=== PATIENT | female | born 1985 | race Caucasian/White ===

== ENCOUNTER 2018-03-15 14:09 | Emergency (ER) | payer BC, OTHER ==
[~2018-03-15] VITALS: Ht 162.6 cm; Wt 88.5 kg
[2018-03-15] MEDS ORDERED: LISI1TAB8 PO (14:42)
[2018-03-15] MEDS ORDERED: PROCHLORPER (14:42)
[2018-03-15] MEDS ORDERED: CITA10TA7 PO (14:42)
[2018-03-15] MEDS ORDERED: ONDANSETRON 4 MG/2 ML (SDV) Z0FRAN IVP ONE (14:45)
[2018-03-15] MEDS ORDERED: NS IV 1000 ML 1,000 ML IV SCH ×2 (14:45→15:45)
[2018-03-15 14:57] LABS: BASOPHILS % (AUTO) 0 % (0-10); EOSINOPHILS % (AUTO) 0 % (0-10); HEMATOCRIT 38 % (35-52); HEMOGLOBIN 13.9 G/DL (11.5-16.0); LYMPHOCYTES # (AUTO) 1.2 X 10^3 (1.0-4.0); LYMPHOCYTES % (AUTO) 9 % (12-44); MEAN CORPUSCULAR HEMOGLOBIN 30 PG (25-34); MEAN CORPUSCULAR HGB CONC 36 G/DL (32-36); MEAN CORPUSCULAR VOLUME 82 FL (80-99); MEAN PLATELET VOLUME 8.9 FL (7.4-10.4); MONOCYTES # (AUTO) 0.9 X 10^3 (0.0-1.0); MONOCYTES % (AUTO) 6 % (0-12); NEUTROPHILS # (AUTO) 11.9 X 10^3 (1.8-7.8); NEUTROPHILS % (AUTO) 85 % (42-75); PLATELET COUNT 535 10^3/uL (130-400); RED BLOOD COUNT 4.66 10^6/uL (4.35-5.85); RED CELL DISTRIBUTION WIDTH 13.1 % (10.0-14.5); WHITE BLOOD COUNT 13.9 10^3/uL (4.3-11.0)
[2018-03-15 15:17] LABS: ALANINE AMINOTRANSFERASE 19 U/L (0-55); ALBUMIN 4.8 GM/DL (3.2-4.5); ALKALINE PHOSPHATASE 50 U/L (40-136); BUN/CREATININE RATIO 14; CALCIUM 10.7 MG/DL (8.5-10.1); CARBON DIOXIDE 24 MMOL/L (21-32); CHLORIDE 97 MMOL/L (98-107); GFR ESTIMATED > 60; GLUCOSE 147 MG/DL (70-105); POTASSIUM 3.4 MMOL/L (3.6-5.0); SODIUM 134 MMOL/L (135-145); TOTAL PROTEIN 8.5 GM/DL (6.4-8.2)
[2018-03-15] MEDS ORDERED: PROMETHAZINE INJ 25 MG/ML (PHENERGAN) AMP IVP ONE (15:45)
[2018-03-15] MEDS ORDERED: NS 250 ML (IVPB) BAG IV ONE (15:45)
[2018-03-15] MEDS ORDERED: IOHEXOL 350 MG/ML 100 ML (OMNIPAQUE 350) VIAL IV ONE (15:45)
--- NOTE | 2018-03-15 15:46 | ED Abdominal Pain ---
General Chief Complaint: Abdominal/GI Problems Stated Complaint: VOMITING/DEHYDRATED Nursing Triage Note: PT STATES NVD FOR ABOUT 24 HRS, HAD A SINUS INFECTION ON TUESDAY AND WAS GIVEN A Z PACK. Sepsis Screen: No Definite Risk Source of Information: Patient Exam Limitations: No Limitations History of Present Illness Date Seen by Provider: Mar 15, 2018 Time Seen by Provider: 15:44 Initial Comments To ER with nausea vomiting and diarrhea for about 24 hours. On Tuesday of this weekend (today is Tuesday) she was put on a Z-Berto for sinus infection. That night after starting the Z-Berto she developed diarrhea. Starting last night she developed nausea and vomiting as well as some right lower and epigastric abdominal pain. She did finish the Z-Berto. Timing/Duration: 2-3 Days Severity/Quality: Cramping Location: Generalized Abdomen Radiation: No Radiation Activities at Onset: None Allergies and Home Medications Allergies Coded Allergies: clindamycin (Verified Allergy, Intermediate, 03/15/18) Home Medications Lisinopril/Hydrochlorothiazide 1 Each Tablet, 1 EACH PO DAILY, (Reported) Patient Home Medication List Home Medication List Reviewed: Yes Review of Systems Constitutional: see HPI, chills; No fever EENTM: No Symptoms Reported Respiratory: No Symptoms Reported Cardiovascular: No Symptoms Reported Gastrointestinal: See HPI, Abdominal Pain Genitourinary: No Symptoms Reported Musculoskeletal: no symptoms reported Skin: no symptoms reported Psychiatric/Neurological: No Symptoms Reported Endocrine: No Symptoms Reported Past Nekpivf-Cgqwtu-Tunqio Hx Patient Social History Alcohol Use: Denies Use Recreational Drug Use: No Smoking Status: Never a Smoker Recent Foreign Travel: No Contact w/Someone Who Travel: No Recent Infectious Disease Expo: No Recent Hopitalizations: No Seasonal Allergies Seasonal Allergies: Yes Past Medical History Surgeries: Yes Tubal Ligation Respiratory: No Cardiac: Yes Hypertension Neurological: Yes Headaches /Migraines : 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 oz. 88.305228dn; BMI Method:Stated General Appearance: WD/WN, no apparent distress HEENT: PERRL/EOMI, normal ENT inspection Neck: non-tender, full range of motion Respiratory: no respiratory distress, no accessory muscle use Gastrointestinal: normal bowel sounds, non tender, soft; No tenderness Extremities: normal range of motion, non-tender Neurologic/Psychiatric: alert, normal mood/affect, oriented x 3 Skin: normal color, warm/dry Progress/Results/Core Measures Results/Orders Lab Results Laboratory Tests Test 03/15/18 14:50 Range/Units White Blood Count 13.9 H 4.3-11.0 10^3/uL Red Blood Count 4.66 4.35-5.85 10^6/uL Hemoglobin 13.9 11.5-16.0 G/DL Hematocrit 38 35-52 % Mean Corpuscular Volume 82 80-99 FL Mean Corpuscular Hemoglobin 30 25-34 PG Mean Corpuscular Hemoglobin Concent 36 32-36 G/DL Red Cell Distribution Width 13.1 10.0-14.5 % Platelet Count 535 H 130-400 10^3/uL Mean Platelet Volume 8.9 7.4-10.4 FL Neutrophils (%) (Auto) 85 H 42-75 % Lymphocytes (%) (Auto) 9 L 12-44 % Monocytes (%) (Auto) 6 0-12 % Eosinophils (%) (Auto) 0 0-10 % Basophils (%) (Auto) 0 0-10 % Neutrophils # (Auto) 11.9 H 1.8-7.8 X 10^3 Lymphocytes # (Auto) 1.2 1.0-4.0 X 10^3 Monocytes # (Auto) 0.9 0.0-1.0 X 10^3 Eosinophils # (Auto) 0.0 0.0-0.3 10^3/uL Basophils # (Auto) 0.0 0.0-0.1 10^3/uL Sodium Level 134 L 135-145 MMOL/L Potassium Level 3.4 L 3.6-5.0 MMOL/L Chloride Level 97 L 98-107 MMOL/L Carbon Dioxide Level 24 21-32 MMOL/L Anion Gap 13 5-14 MMOL/L Blood Urea Nitrogen 13 7-18 MG/DL Creatinine 0.90 0.60-1.30 MG/DL Estimat Glomerular Filtration Rate > 60 BUN/Creatinine Ratio 14 Glucose Level 147 H 70-105 MG/DL Calcium Level 10.7 H 8.5-10.1 MG/DL Corrected Calcium 8.5-10.1 MG/DL Total Bilirubin 1.0 0.1-1.0 MG/DL Aspartate Amino Transf (AST/SGOT) 17 5-34 U/L Alanine Aminotransferase (ALT/SGPT) 19 0-55 U/L Alkaline Phosphatase 50 40-136 U/L Total Protein 8.5 H 6.4-8.2 GM/DL Albumin 4.8 H 3.2-4.5 GM/DL Serum Test, Qualitative NEGATIVE NEGATIVE My Orders Orders - JEFF JACQUES APRN Cbc With Automated Diff (03/15/18 14:44) Comprehensive Metabolic Panel (03/15/18 14:44) Ua Culture If Indicated (03/15/18 14:44) Iv Heplock-Insert (Order) (03/15/18 14:44) Ns Iv 1000 Ml (Sodium Chloride 0.9%) (03/15/18 14:45) Ondansetron Injection (Zofran Injectio (03/15/18 14:45) Ns Iv 1000 Ml (Sodium Chloride 0.9%) (03/15/18 15:45) Promethazine Injection (Phenergan Injec (03/15/18 15:45) Hcg,Qualitative Serum (03/15/18 15:38) Ct Abdomen/Pelvis W (03/15/18 15:38) Iohexol Injection (Omnipaque 350 Mg/Ml 1 (03/15/18 15:45) Ns (Ivpb) (Sodium Chloride 0.9%) (03/15/18 15:45) Medications Given in ED Current Medications Medications Dose Ordered Sig/Amilcar Route Start Time Stop Time Status Last Admin Dose Admin Iohexol 100 ml ONCE ONCE IV 03/15/18 15:45 03/15/18 15:46 DC 03/15/18 16:08 100 ML Ondansetron HCl 8 mg ONCE ONCE IVP 03/15/18 14:45 03/15/18 14:46 DC 03/15/18 14:55 8 MG Promethazine HCl 12.5 mg ONCE ONCE IVP 03/15/18 15:45 03/15/18 15:46 DC 03/15/18 15:51 12.5 MG Sodium Chloride 250 ml ONCE ONCE IV 03/15/18 15:45 03/15/18 15:46 DC 03/15/18 16:08 80 ML Vital Signs/I&O 03/15/18 14:33 Temp 98.4 Pulse 69 Resp 20 B/P (MAP) 132/88 (103) Pulse Ox 97 O2 Delivery Room Air Blood Pressure Mean: 103 Diagnostic Imaging Diagonstic Imaging: Xray Comments NAME: LEONA RIOS [facility] REC#: [id number] PT STATUS: REG ER : 1985 PHYSICIAN: JEFF JACQUES APRN ADMIT DATE: 03/15/18/ER Draft Date of Exam:03/15/18 CT ABDOMEN/PELVIS W PROCEDURE: CT abdomen and pelvis with contrast. TECHNIQUE: Multiple contiguous axial images were obtained through the abdomen and pelvis after administration of intravenous contrast. INDICATION: Nausea, vomiting, diarrhea of 24-hour duration. COMPARISON: No priors. FINDINGS: The air-containing appendix is visualized and normal. There is no small or large bowel obstruction. There is no free air or pneumatosis. The liver, gallbladder, bile ducts, spleen, adrenals, and pancreas are unremarkable. The unobstructed kidneys appeared normal. There is a small fatty umbilical hernia, noninflamed. There is a right ovarian cyst, probably dominant follicle, measuring 2 cm without appreciable complexity. The uterus, left adnexa, and urinary bladder appeared normal. There is no diverticulitis. No focal inflammatory change is identified. IMPRESSION: Unobstructed urinary tracts. Negative appendix. Likely physiologic simple right ovarian cyst. Incidental fatty umbilical hernia. No obstructive features, inflammatory process, or acute abnormalities are identified. Dictated on workstation # [id number] Dict: 03/15/18 1629 Trans: 03/15/18 1641 [id number] Interpreted by: AMELIA ARZATE Electronically signed by: Departure Impression Primary Impression: Nausea vomiting and diarrhea Disposition: 01 HOME, SELF-CARE Condition: Stable Departure-Patient Inst. Decision time for Depature: 16:45 Referrals: RAMÓN MUNROE MD (PCP/Family) Primary Care Physician Patient Instructions: Nausea and Vomiting, Adult Add. Discharge Instructions: 1. Medication as directed. Return to ER for any concerns and follow up with your doctor later this week or next week for recheck. All discharge instructions reviewed with patient and/or family. Voiced understanding. Scripts Promethazine HCl (Promethazine Tablet) 25 Mg Tablet 25 MG PO Q6H PRN for NAUSEA/VOMITING, #20 TAB Prov: JEFF JACQUES APRN 03/15/18 JEFF JACQUES APRN Mar 15, 2018 15:46
--- NOTE | 2018-03-15 16:41 | Diagnostic Imaging Report ---
PROCEDURE: CT abdomen and pelvis with contrast. TECHNIQUE: Multiple contiguous axial images were obtained through the abdomen and pelvis after administration of intravenous contrast. INDICATION: Nausea, vomiting, diarrhea of 24-hour duration. COMPARISON: No priors. FINDINGS: The air-containing appendix is visualized and normal. There is no small or large bowel obstruction. There is no free air or pneumatosis. The liver, gallbladder, bile ducts, spleen, adrenals, and pancreas are unremarkable. The unobstructed kidneys appeared normal. There is a small fatty umbilical hernia, noninflamed. There is a right ovarian cyst, probably dominant follicle, measuring 2 cm without appreciable complexity. The uterus, left adnexa, and urinary bladder appeared normal. There is no diverticulitis. No focal inflammatory change is identified. IMPRESSION: Unobstructed urinary tracts. Negative appendix. Likely physiologic simple right ovarian cyst. Incidental fatty umbilical hernia. No obstructive features, inflammatory process, or acute abnormalities are identified. Dictated by: Dictated on workstation # [id number]
[2018-03-15] MEDS ORDERED: PROM25TA14 PO (16:57)
[2018-03-15 17:04] LABS: BILIRUBIN,URINE NEGATIVE (NEGATIVE); CLARITY,URINE CLEAR; COLOR,URINE YELLOW; GLUCOSE, URINE (UA) NEGATIVE (NEGATIVE); KETONES,URINE 4+ (NEGATIVE); LEUKOCYTE ESTERASE ,URINE NEGATIVE (NEGATIVE); NITRITE,URINE NEGATIVE (NEGATIVE); PH,URINE 7 (5-9); PROTEIN,URINE 2+ (NEGATIVE); UROBILINOGEN,URINE NORMAL (NORMAL)
[2018-03-15 17:17] LABS: BACTERIA,URINE TRACE /HPF
[2018-03-15 17:25] VITALS: BP 129/80
== END 2018-03-15 17:25 | disposition home or self-care (01) ==
LOC: EDUNIT# 14:09 → ER 14:12
DX: R11.2 Nausea with vomiting, unspecified (principal); R19.7 Diarrhea, unspecified; I10 Essential (primary) hypertension; G43.909 Migraine, unspecified, not intractable, without status migrainosus; Z88.0 Allergy status to penicillin; Z98.51 Tubal ligation status
CPT/HCPCS: 36415; 74177; 80053; 81000; 84703; 85025; 96361; 96374; 96375

== ENCOUNTER 2018-07-23 17:09 | Emergency (ER) | payer BC ==
[~2018-07-23] VITALS: Ht 162.6 cm; Wt 88.5 kg
[~2018-07-23 17:09] MED LIST: CITA10TA7 PO; LISI1TAB8 PO; PROCHLORPER; PROM25TA14 PO
--- OUTSIDE RECORDS SUMMARY | 2018-07-23 17:15 | XMS REPORT | Continuity of Care Document ---
Author Author [facility] Organization [facility] Address Unknown Phone Unavailable Allergies There is no data. Medications There is no data. Problems Date Dx Coded Attending Type Code Diagnosis Diagnosed By 08/25/2015 Ot 789.03 08/25/2015 Ot 787.02 08/25/2015 Ot 789.00 04/05/2017 NIRMALA BARNES Ot M25.571 PAIN IN RIGHT ANKLE AND JOINTS OF RIGHT Procedures There is no data. Results Test Result Range Complete blood count (CBC) with automated white blood cell (WBC) differential - 03/15/18 14:50 Blood leukocytes automated count (number/volume) 13.9 10*3/uL 4.3-11.0 Blood erythrocytes automated count (number/volume) 4.66 10*6/uL 4.35-5.85 Venous blood hemoglobin measurement (mass/volume) 13.9 g/dL 11.5-16.0 Blood hematocrit (volume fraction) 38 % 35-52 Automated erythrocyte mean corpuscular volume 82 [foz_us] 80-99 Automated erythrocyte mean corpuscular hemoglobin (mass per erythrocyte) 30 pg 25-34 Automated erythrocyte mean corpuscular hemoglobin concentration measurement ( mass/volume) 36 g/dL 32-36 Automated erythrocyte distribution width ratio 13.1 % 10.0-14.5 Automated blood platelet count (count/volume) 535 10*3/uL 130-400 Automated blood platelet mean volume measurement 8.9 [foz_us] 7.4-10.4 Automated blood neutrophils/100 leukocytes 85 % 42-75 Automated blood lymphocytes/100 leukocytes 9 % 12-44 Blood monocytes/100 leukocytes 6 % 0-12 Automated blood eosinophils/100 leukocytes 0 % 0-10 Automated blood basophils/100 leukocytes 0 % 0-10 Blood neutrophils automated count (number/volume) 11.9 10*3 1.8-7.8 Blood lymphocytes automated count (number/volume) 1.2 10*3 1.0-4.0 Blood monocytes automated count (number/volume) 0.9 10*3 0.0-1.0 Automated eosinophil count 0.0 10*3/uL 0.0-0.3 Automated blood basophil count (count/volume) 0.0 10*3/uL 0.0-0.1 Comprehensive metabolic panel - 03/15/18 14:50 Serum or plasma sodium measurement (moles/volume) 134 mmol/L 135-145 Serum or plasma potassium measurement (moles/volume) 3.4 mmol/L 3.6-5.0 Serum or plasma chloride measurement (moles/volume) 97 mmol/L 98-107 Carbon dioxide 24 mmol/L 21-32 Serum or plasma anion gap determination (moles/volume) 13 mmol/L 5-14 Serum or plasma urea nitrogen measurement (mass/volume) 13 mg/dL 7-18 Serum or plasma creatinine measurement (mass/volume) 0.90 mg/dL 0.60-1.30 Serum or plasma urea nitrogen/creatinine mass ratio 14 NRG Serum or plasma creatinine measurement with calculation of estimated glomerular filtration rate > NRG Serum or plasma glucose measurement (mass/volume) 147 mg/dL 70-105 Serum or plasma calcium measurement (mass/volume) 10.7 mg/dL 8.5-10.1 Serum or plasma total bilirubin measurement (mass/volume) 1.0 mg/dL 0.1-1.0 Serum or plasma alkaline phosphatase measurement (enzymatic activity/volume) 50 U/L 40-136 Serum or plasma aspartate aminotransferase measurement (enzymatic activity/ volume) 17 U/L 5-34 Serum or plasma alanine aminotransferase measurement (enzymatic activity/volume ) 19 U/L 0-55 Serum or plasma protein measurement (mass/volume) 8.5 g/dL 6.4-8.2 Serum or plasma albumin measurement (mass/volume) 4.8 g/dL 3.2-4.5 Serum or plasma choriogonadotropin ( test) detection - 03/15/18 14:50 Serum or plasma choriogonadotropin ( test) detection NEGATIVE NEGATIVE Complete urinalysis with reflex to culture - 03/15/18 16:55 Urine color determination YELLOW NRG Urine clarity determination CLEAR NRG Urine pH measurement by test strip 7 5-9 Specific gravity of urine by test strip 1.005 1.016- 1.022 Urine protein assay by test strip, semi-quantitative 2+ NEGATIVE Urine glucose detection by automated test strip NEGATIVE NEGATIVE Erythrocytes detection in urine sediment by light microscopy NEGATIVE NEGATIVE Urine ketones detection by automated test strip 4+ NEGATIVE Urine nitrite detection by test strip NEGATIVE NEGATIVE Urine total bilirubin detection by test strip NEGATIVE NEGATIVE Urine urobilinogen measurement by automated test strip (mass/volume) NORMAL NORMAL Urine leukocyte esterase detection by dipstick NEGATIVE NEGATIVE Automated urine sediment erythrocyte count by microscopy (number/high power field) NONE NRG Automated urine sediment leukocyte count by microscopy (number/high power field ) NONE NRG Bacteria detection in urine sediment by light microscopy TRACE NRG Squamous epithelial cells detection in urine sediment by light microscopy 5-10 NRG Crystals detection in urine sediment by light microscopy NONE NRG Casts detection in urine sediment by light microscopy NONE NRG Mucus detection in urine sediment by light microscopy NEGATIVE NRG Complete urinalysis with reflex to culture NO NRG Encounters ACCT No. Visit Date/Time Discharge Status Pt. Type Provider Facility Loc./Unit Complaint [id number] 08/25/2015 10:59:00 08/25/2015 23:59:59 CLS Outpatient NIRMALA BARNES [facility] RAD FALL WITH PAIN [id number] 03/15/2018 14:58:00 Document Registration [id number] 11/24/2012 08:28:00 Document Registration [id number] 01/24/2012 10:53:00 Document Registration
--- OUTSIDE RECORDS SUMMARY | 2018-07-23 17:15 | XMS REPORT | CCD ---
Author Author [facility] Address [address] [place] [address] Phone Care Team Providers Care Associate [employer] Name Role Phone PP Unavailable CCM Unavailable Summary Purpose Interface Exchange Insurance Providers Payer name Policy type / Coverage type Covered libertarian ID Effective Begin Date Effective End Date [employer] [facility] [employer] [facility] [id number] Unknown Family history Father Diagnosis Age At Onset No Family Disease Entered N/A Mother Diagnosis Age At Onset No Family Disease Entered N/A Social History Social History Element Codes Description Effective Dates Marital status Unknown Suresh 08/22/2014 Number of children Unknown 1 08/22/2014 Employment Unknown Currently employed [employer] 08/22/2014 Employment Unknown Currently employed [employer] 08/22/[address]: 534311939 Never smoker 08/22/[address]: 058651222 Never smoker 08/22/2014 Alcohol history Unknown occasionally drinks alcohol 08/22/2014 Alcohol history Unknown occasionally drinks alcohol 0-1 drinks per week 08/22/2014 Has the patient ever used illegal drugs? Unknown Has never used illegal drugs 08/22/2014 Allergies, Adverse Reactions, Alerts Allergies, Adverse Reactions, Alerts data not found Past Medical History Illness Codes Condition Status Onset Date Resolved Date Cough ICD-9: 786.2 ICD-10: R05 Active 12/29/2016 Unknown Other allergic rhinitis ICD-9: 477.8 ICD-10: J30.89 Active 12/29/2016 Unknown Acute maxillary sinusitis, unspecified ICD-9: 461.0 ICD-10: J01.00 Active 05/26/2015 Unknown Acute laryngopharyngitis ICD-9: 465.0 ICD-10: J06.0 Active 02/26/2016 Unknown Other acute sinusitis ICD-9: 461.8 ICD-10: J01.80 Active 02/26/2016 Unknown Acute nasopharyngitis [common cold] ICD-9: 460 ICD-10: J00 Active 03/07/2016 Unknown Acute cystitis without hematuria ICD-9: 595.0 ICD-10: N30.00 Active 09/30/2015 Unknown Acute recurrent maxillary sinusitis ICD-9: 461.0 ICD-10: J01.01 Active 07/20/2015 Unknown Essential (primary) hypertension ICD-9: 401.9 ICD-10: I10 Active 05/26/2015 Unknown Hypertension Unknown Active 08/22/2014 Unknown Acute maxillary sinusitis ICD-9: 461.0 Active 08/22/2014 Unknown COUGH ICD-9: 786.2 Active 08/22/2014 Unknown ESSENTIAL HYPERTENSION ICD-9: 401.9 Active 08/22/2014 Unknown Problems Condition Codes Effective Dates Condition Status Cough ICD-9: 786.2 ICD-10: R05 12/29/2016 Active Other allergic rhinitis ICD-9: 477.8 ICD-10: J30.89 12/29/2016 Active Acute maxillary sinusitis, unspecified ICD-9: 461.0 ICD-10: J01.00 05/26/2015 Active Acute laryngopharyngitis ICD-9: 465.0 ICD-10: J06.0 02/26/2016 Active Other acute sinusitis ICD-9: 461.8 ICD-10: J01.80 02/26/2016 Active Acute nasopharyngitis [common cold] ICD-9: 460 ICD-10: J00 03/07/2016 Active Acute cystitis without hematuria ICD-9: 595.0 ICD-10: N30.00 09/30/2015 Active Acute recurrent maxillary sinusitis ICD-9: 461.0 ICD-10: J01.01 07/20/2015 Active Essential (primary) hypertension ICD-9: 401.9 ICD-10: I10 05/26/2015 Active Hypertension Unknown 08/22/2014 Active Acute maxillary sinusitis ICD-9: 461.0 08/22/2014 Active COUGH ICD-9: 786.2 08/22/2014 Active ESSENTIAL HYPERTENSION ICD-9: 401.9 08/22/2014 Active Medications Medication Codes Instructions Start Date Stop Date Status Fill Instructions Tessalon Perles 100 mg capsule RxNorm: 955997 1-2 Capsule(s) PO TID as needed 09/12/2017 09/16/2017 Active Zofran 4 mg tablet RxNorm: 314487 1 Tablet(s) PO TID as needed nausea and vomitting 08/17/2017 No Stop Date Active Zofran 4 mg tablet RxNorm: 335456 1 Tablet(s) PO TID as needed nausea and vomitting 08/17/2017 08/16/2017 Inactive Zithromax 250 mg tablet RxNorm: 145349 Tablet(s) PO UD 2 tabs day one 1 tab day 2- 5 - start if symptoms are not improving 12/29/2016 No Stop Date Active Sarah Allergy 180 mg tablet RxNorm: 058027 1 Tablet(s) PO daily 12/29/2016 03/28/2017 Inactive Singulair 10 mg tablet RxNorm: 365235 1 Tablet(s) PO daily 03/28/2017 Inactive Tessalon Perles 100 mg capsule RxNorm: 943790 1-2 Capsule(s) PO TID as needed 12/29/2016 01/02/2017 Inactive Kenalog 40 mg/mL suspension for injection RxNorm: 4765833 Milliliter(s) Inj 12/21/2016 12/21/2016 Inactive Diflucan 150 mg tablet RxNorm: 893145 1 Tablet(s) PO daily 07/201712/21/2016 Inactive Diflucan 150 mg tablet RxNorm: 750334 1 Tablet(s) PO daily 07/201712/16/2016 Inactive prednisone 20 mg tablet RxNorm: 119035 2 Tablet(s) PO daily 03/201712/17/2016 Inactive Augmentin 875 mg-125 mg tablet RxNorm: 775718 1 Tablet(s) PO BID 12/09/2016 12/15/2016 Inactive Augmentin 875 mg-125 mg tablet RxNorm: 561025 1 Tablet(s) PO BID 10/22/2016 10/28/2016 Inactive Augmentin 875 mg-125 mg tablet RxNorm: 019206 1 Tablet(s) PO BID 10/22/2016 10/21/2016 Inactive amoxicillin 500 mg capsule RxNorm: 658351 1 Capsule(s) PO TID 02/27/2016 03/04/2016 Inactive Celexa 10 mg tablet RxNorm: 654510 1 Tablet(s) PO daily 201510/21/2016 Inactive metoprolol tartrate 50 mg tablet RxNorm: 862023 1 Tablet(s) PO BID 10/28/2015 10/21/2016 Inactive Celexa 10 mg tablet RxNorm: 843751 1 Tablet(s) PO daily 201510/27/2015 Inactive metoprolol tartrate 50 mg tablet RxNorm: 540771 1 Tablet(s) PO BID 10/27/2015 10/27/2015 Inactive Zithromax 250 mg tablet RxNorm: 544583 Tablet(s) PO UD 2 tabs day one 1 tab day 2- 5 10/14/2015 12/08/2016 Inactive metoprolol tartrate 50 mg tablet RxNorm: 691356 1 Tablet(s) PO BID 10/02/2015 10/01/2015 Inactive Celexa 10 mg tablet RxNorm: 426473 1 Tablet(s) PO daily 201510/26/2015 Inactive metoprolol tartrate 50 mg tablet RxNorm: 190202 1 Tablet(s) PO BID 10/02/2015 10/01/2015 Inactive metoprolol tartrate 50 mg tablet RxNorm: 051436 1 Tablet(s) PO BID 10/02/2015 10/26/2015 Inactive Celexa 10 mg tablet RxNorm: 020233 1 Tablet(s) PO daily 201510/01/2015 Inactive Bactrim DS 800 mg-160 mg tablet RxNorm: 203828 1 Tablet(s) PO BID 10/01/2015 10/07/2015 Inactive Diflucan 150 mg tablet RxNorm: 138807 1 Tablet(s) PO daily 10/07/2015 Inactive Kenalog 40 mg/mL suspension for injection RxNorm: 6466460 Milliliter(s) Inj 07/21/2015 07/21/2015 Inactive Diflucan 150 mg tablet RxNorm: 282591 1 Tablet(s) PO daily 07/27/2015 Inactive ceftriaxone 500 mg solution for injection RxNorm: 5811432 Inj 07/21/2015 07/21/2015 Inactive Augmentin 875 mg-125 mg tablet RxNorm: 430185 1 Tablet(s) PO BID 07/21/2015 07/27/2015 Inactive Zithromax 250 mg tablet RxNorm: 977198 Tablet(s) PO 2 tabs day one 1 tab day 2-5 07/17/2015 10/13/2015 Inactive Diflucan 150 mg tablet RxNorm: 816056 1 Tablet(s) PO daily 06/05/2015 Inactive Diflucan 150 mg tablet RxNorm: 761385 1 Tablet(s) PO daily 06/12/2015 Inactive Augmentin 875 mg-125 mg tablet RxNorm: 220673 1 Tablet(s) PO BID 05/27/2015 06/02/2015 Inactive metoprolol tartrate 25 mg tablet RxNorm: 190550 1 Tablet(s) PO BID TAKE ONE TABLET BY MOUTH TWICE DAILY 05/27/2015 Inactive 04/15/2015 9:06:19 AM metoprolol tartrate 25 mg tablet RxNorm: 060915 TAKE ONE TABLET BY MOUTH TWICE DAILY 04/15/2015 05/26/2015 Inactive 04/15/2015 9:06:19 AM metoprolol tartrate 25 mg tablet RxNorm: 069096 TAKE ONE TABLET BY MOUTH TWICE DAILY 04/15/2015 04/14/2015 Inactive metoprolol tartrate 25 mg tablet RxNorm: 336161 1 Tablet(s) PO BID 02/14/2015 04/14/2015 Inactive [SAVINGS FOR NON-COVERED DRUGS -- BIN:[id number], PCN: ASPROD1, Group : XXXXX, ID# [id number], Questions: . THIS IS NOT INSURANCE.] metoprolol tartrate 25 mg tablet RxNorm: 050415 1 Tablet(s) PO BID 10/22/2014 02/13/2015 Inactive [SAVINGS FOR NON-COVERED DRUGS -- BIN:[id number], PCN: ASPROD1, Group : XXXXX, ID# [id number], Questions: . THIS IS NOT INSURANCE.] Kenalog 40 mg/mL suspension for injection RxNorm: 6551513 Milliliter(s) Inj 08/22/2014 08/22/2014 Inactive [SAVINGS FOR UNINSURED PATIENTS -- BIN:[id number], PCN: ASPROD1, Group: [id number], ID# [id number], Process claim through [employer], for questions: . THIS IS NOT INSURANCE.] ceftriaxone 500 mg solution for injection RxNorm: 309807 Inj 08/22/2014 Inactive [SAVINGS FOR UNINSURED PATIENTS -- BIN:[id number], PCN: ASPROD1, Group: [id number] , ID# [id number], Process claim through [employer], for questions: . THIS IS NOT INSURANCE.] Augmentin 500 mg-125 mg tablet RxNorm: 648791 1 Tablet(s) PO TID 08/22/2014 08/31/2014 Inactive [SAVINGS FOR UNINSURED PATIENTS -- BIN:750759, PCN: ASPROD1, Group: [id number], ID# [id number], Process claim through [employer], for questions: [phone]. THIS IS NOT INSURANCE.] Multi Vitamin oral RxNorm: oral No Start Date Active Zithromax 250 mg tablet RxNorm: 499209 Tablet(s) PO 2 tabs day one 1 tab day 2-5 No Start Date 07/16/2015 Inactive metoprolol tartrate 25 mg tablet RxNorm: 590366 1 Tablet(s) PO daily No Start Date 10/21/2014 Inactive Medication Administered Medication Codes Instructions Start Date Status Kenalog 40 mg/mL suspension for injection RxNorm: 4289662 Milliliter 12/21/2016 No longer Active Kenalog 40 mg/mL suspension for injection RxNorm: 3768509 Milliliter 07/21/2015 No longer Active ceftriaxone 500 mg solution for injection RxNorm: 9459036 07/21/2015 No longer Active ceftriaxone 500 mg solution for injection RxNorm: 899103 08/22/2014 No longer Active Kenalog 40 mg/mL suspension for injection RxNorm: 5840749 Milliliter 08/22/2014 No longer Active Immunizations Vaccine Codes Date Status Influenza CVX: 141 05/12/2017 completed Influenza CVX: 141 05/08/2014 completed Assessments Condition Codes Effective Dates Cough ICD-10: R05 ICD-9: 786.2 12/29/2016 Other allergic rhinitis ICD-10: J30.89 ICD-9: 477.8 12/29/2016 Acute maxillary sinusitis, unspecified ICD-10: J01.00 ICD-9: 461.0 12/21/2016 Other acute sinusitis ICD-10: J01.80 ICD-9: 461.8 12/13/2016 Acute laryngopharyngitis ICD-10: J06.0 ICD-9: 465.0 12/13/2016 Acute nasopharyngitis [common cold] ICD-10: J00 ICD-9: 460 03/08/2016 Acute cystitis without hematuria ICD-10: N30.00 ICD-9: 595.0 10/01/2015 Acute recurrent maxillary sinusitis ICD-10: J01.01 ICD-9: 461.0 07/21/2015 Essential (primary) hypertension ICD-10: I10 ICD-9: 401.9 05/27/2015 ESSENTIAL HYPERTENSION ICD-9: 401.9 08/22 COUGH ICD-9: 786.2 08/22/2014 Acute maxillary sinusitis ICD-9: 461.0 Reason For Visit Reason For Visit Effective Dates Notes cough 12/29/2016 sinus congestion 12/13/2016 cough 03/08/2016 cough 02/27/2016 anxiety 10/01/2015 cough 07/21/2015 cough 05/27/2015 cough 08/22/2014 Results No Results data Review of Systems System Result Effective Dates Constitutional recent illness 12/29/2016 Constitutional No chills 12/29/2016 Constitutional No diaphoresis 12/29/2016 Constitutional No fever 12/29/2016 Eyes No eye erythema 12/29/2016 Ears/Nose/Throat/Neck nasal allergies Ears/Nose/Throat/Neck nasal discharge Ears/Nose/Throat/Neck No sinus congestion 12/29/2016 Ears/Nose/Throat/Neck No sore throat Ears/Nose/Throat/Neck postnasal drip Cardiovascular No chest pain/pressure Respiratory cough 12/29/2016 Respiratory No chest congestion 2016 Respiratory No dyspnea 12/29/2016 Gastrointestinal No abdominal pain 2016 Neurologic No alteration of consciousness 12/29/2016 Neurologic No mental status change 2016 Constitutional recent illness 12/13/2016 Constitutional No diaphoresis 12/13/2016 Constitutional fatigue 12/13/2016 Constitutional No fever 12/13/2016 Eyes No eye discharge 12/13/2016 Eyes No eye erythema 12/13/2016 Ears/Nose/Throat/Neck nasal allergies 03/2017 Ears/Nose/Throat/Neck nasal discharge 03/2017 Ears/Nose/Throat/Neck postnasal drip 03/2017 Ears/Nose/Throat/Neck sinus congestion Cardiovascular No chest pain/pressure 03/2017 Cardiovascular No dyspnea 12/13/2016 Respiratory chest congestion 12/13/2016 Respiratory cough 12/13/2016 Gastrointestinal No constipation 2016 Gastrointestinal No diarrhea 12/13/2016 Neurologic No alteration of consciousness 12/13/2016 Neurologic No mental status change 2016 Constitutional recent illness 03/08/2016 Constitutional No diaphoresis 03/08/2016 Constitutional fatigue 03/08/2016 Constitutional No fever 03/08/2016 Eyes No eye discharge 03/08/2016 Eyes No eye erythema 03/08/2016 Ears/Nose/Throat/Neck nasal allergies 08/2015 Ears/Nose/Throat/Neck nasal discharge 08/2015 Cardiovascular No chest pain/pressure 08/2015 Cardiovascular No dyspnea 03/08/2016 Gastrointestinal No constipation 2015 Gastrointestinal No diarrhea 03/08/2016 Musculoskeletal No joint complaint 2015 Dermatologic No rash 03/08/2016 Neurologic No alteration of consciousness 03/08/2016 Neurologic No mental status change 2015 Ears/Nose/Throat/Neck No sinus congestion 03/08/2016 Ears/Nose/Throat/Neck postnasal drip 08/2015 Respiratory No cough 03/08/2016 Constitutional recent illness 02/27/2016 Constitutional No diaphoresis 02/27/2016 Constitutional No fever 02/27/2016 Eyes No eye discharge 02/27/2016 Eyes No eye erythema 02/27/2016 Ears/Nose/Throat/Neck nasal allergies Ears/Nose/Throat/Neck nasal discharge Ears/Nose/Throat/Neck postnasal drip Ears/Nose/Throat/Neck sinus congestion Cardiovascular No chest pain/pressure Cardiovascular No dyspnea 02/27/2016 Respiratory chest congestion 02/27/2016 Respiratory cough 02/27/2016 Gastrointestinal No constipation 2015 Gastrointestinal No diarrhea 02/27/2016 Musculoskeletal No joint complaint 2015 Dermatologic No rash 02/27/2016 Neurologic No alteration of consciousness 02/27/2016 Constitutional fatigue 02/27/2016 Neurologic No mental status change 2015 Constitutional recent illness 10/01/2015 Constitutional chills 10/01/2015 Constitutional No diaphoresis 10/01/2015 Constitutional No fatigue 10/01/2015 Constitutional No fever 10/01/2015 Constitutional insomnia 10/01/2015 Constitutional malaise 10/01/2015 Eyes No eye discharge 10/01/2015 Eyes No eye erythema 10/01/2015 Ears/Nose/Throat/Neck No dizziness 2015 Ears/Nose/Throat/Neck No nasal allergies 10/01/2015 Ears/Nose/Throat/Neck No nasal discharge 10/01/2015 Ears/Nose/Throat/Neck No postnasal drip 10/01/2015 Ears/Nose/Throat/Neck No sinus congestion 10/01/2015 Ears/Nose/Throat/Neck No sore throat Cardiovascular No chest pain/pressure Cardiovascular No dyspnea 10/01/2015 Respiratory No chest congestion 2015 Respiratory No cough 10/01/2015 Gastrointestinal No abdominal pain 2015 Gastrointestinal No constipation 2015 Gastrointestinal No diarrhea 10/01/2015 Musculoskeletal No joint complaint 2015 Dermatologic No rash 10/01/2015 Neurologic No alteration of consciousness 10/01/2015 Genitourinary/Nephrology dysuria 2015 Genitourinary/Nephrology urinary frequency 10/01/2015 Genitourinary/Nephrology urinary urgency 10/01/2015 Constitutional No fatigue 07/21/2015 Constitutional No fever 07/21/2015 Constitutional chills 07/21/2015 Constitutional malaise 07/21/2015 Respiratory cough 07/21/2015 Eyes No eye discharge 07/21/2015 Eyes No eye erythema 07/21/2015 Ears/Nose/Throat/Neck otalgia 07/21/2015 Ears/Nose/Throat/Neck postnasal drip Ears/Nose/Throat/Neck sinus congestion Ears/Nose/Throat/Neck nasal discharge Ears/Nose/Throat/Neck nasal allergies Cardiovascular No chest pain/pressure Cardiovascular No dyspnea 07/21/2015 Gastrointestinal No constipation 2014 Gastrointestinal No diarrhea 07/21/2015 Neurologic No alteration of consciousness 07/21/2015 Constitutional recent illness 07/21/2015 Constitutional No anorexia 07/21/2015 Constitutional No night sweats 2014 Constitutional No diaphoresis 07/21/2015 Constitutional insomnia 07/21/2015 Ears/Nose/Throat/Neck No dizziness 2014 Ears/Nose/Throat/Neck headache 2014 Ears/Nose/Throat/Neck No sore throat Respiratory productive sputum 07/21/2015 Respiratory chest congestion 07/21/2015 Gastrointestinal No abdominal pain 2014 Musculoskeletal No joint complaint 2014 Dermatologic No rash 07/21/2015 Constitutional recent illness 05/27/2015 Constitutional No anorexia 05/27/2015 Constitutional No night sweats 2014 Constitutional No chills 05/27/2015 Constitutional No diaphoresis 05/27/2015 Constitutional No fatigue 05/27/2015 Constitutional No fever 05/27/2015 Constitutional insomnia 05/27/2015 Constitutional No malaise 05/27/2015 Eyes No eye discharge 05/27/2015 Eyes No eye erythema 05/27/2015 Ears/Nose/Throat/Neck No dizziness 2014 Ears/Nose/Throat/Neck headache 2014 Ears/Nose/Throat/Neck nasal allergies Ears/Nose/Throat/Neck nasal discharge Ears/Nose/Throat/Neck No sore throat Ears/Nose/Throat/Neck otalgia 05/27/2015 Ears/Nose/Throat/Neck sinus congestion Cardiovascular No chest pain/pressure Respiratory productive sputum 05/27/2015 Respiratory chest congestion 05/27/2015 Respiratory cough 05/27/2015 Gastrointestinal No abdominal pain 2014 Gastrointestinal No constipation 2014 Gastrointestinal No diarrhea 05/27/2015 Genitourinary/Nephrology No dysuria 05/27 Musculoskeletal No joint complaint 2014 Dermatologic No rash 05/27/2015 Neurologic No alteration of consciousness 05/27/2015 Constitutional recent illness 08/22/2014 Constitutional No anorexia 08/22/2014 Constitutional No night sweats 2014 Constitutional No chills 08/22/2014 Constitutional No diaphoresis 08/22/2014 Constitutional fatigue 08/22/2014 Constitutional fever 08/22/2014 Constitutional No insomnia 08/22/2014 Constitutional No malaise 08/22/2014 Eyes No eye discharge 08/22/2014 Eyes No eye erythema 08/22/2014 Ears/Nose/Throat/Neck No dizziness 2014 Ears/Nose/Throat/Neck headache 2014 Ears/Nose/Throat/Neck facial pain 2014 Ears/Nose/Throat/Neck nasal allergies Ears/Nose/Throat/Neck nasal discharge Ears/Nose/Throat/Neck otalgia 08/22/2014 Ears/Nose/Throat/Neck sinus congestion Ears/Nose/Throat/Neck No sore throat Cardiovascular No chest pain/pressure Respiratory productive sputum 08/22/2014 Respiratory No chest congestion 2014 Respiratory cough 08/22/2014 Gastrointestinal No abdominal pain 2014 Gastrointestinal No constipation 2014 Gastrointestinal No diarrhea 08/22/2014 Gastrointestinal No vomiting 08/22/2014 Gastrointestinal No nausea 08/22/2014 Genitourinary/Nephrology No dysuria 08/22 Musculoskeletal No joint complaint 2014 Dermatologic No rash 08/22/2014 Dermatologic No sores 08/22/2014 Neurologic No alteration of consciousness 08/22/2014 Physical Exam Exam Name System Name Item Name Status Result Effective Dates Notes Full Exam - General 1994 Constitutional general appearance Overall: well developed 12/29/2016 None Full Exam - General 1994 Constitutional general appearance Overall: in no acute distress 12/29/2016 None Full Exam - General 1994 Constitutional general appearance Overall: well nourished 12/29/2016 None Full Exam - General 1994 Eyes conjunctiva /eyelids Overall: conjunctiva clear 12/29/2016 None Full Exam - General 1994 Eyes conjunctiva /eyelids Overall: eyelids normal 12/29/2016 None Full Exam - General 1994 Ears/Nose/Throat otoscopic exam Overall: external auditory canals clear 12/29/2016 None Full Exam - General 1994 Ears/Nose/Throat otoscopic exam Overall: tympanic membranes clear 12/29/2016 None Full Exam - General 1994 Ears/Nose/Throat lips/teeth/gingiva Overall: benign lips 12/29/2016 None Full Exam - General 1994 Ears/Nose/Throat oral cavity/pharynx/larynx Overall: oral mucosa clear 12/29/2016 None Full Exam - General 1994 Ears/Nose/Throat oral cavity/pharynx/larynx Overall: oropharyngeal mucosa clear 12/29/2016 None Full Exam - General 1994 Ears/Nose/Throat oral cavity/pharynx/larynx Posterior Pharynx: clear post nasal drainage 12/29/2016 None Full Exam - General 1994 Respiratory auscultation Overall: breath sounds clear bilaterally 12/29/2016 None Full Exam - General 1994 Respiratory respiratory effort/rhythm Overall: no retractions 12/29/2016 None Full Exam - General 1994 Respiratory respiratory effort/rhythm Overall: normal rate 12/29/2016 None Full Exam - General 1994 Cardiovascular auscultation of heart Overall: regular rate 12/29/2016 None Full Exam - General 1994 Cardiovascular auscultation of heart Overall: normal heart sounds 12/29/2016 None Full Exam - General 1994 Lymphatic neck nodes Overall: anterior cervical chain benign 12/29/2016 None Full Exam - General 1994 Lymphatic neck nodes Overall: posterior cervical chain benign 12/29/2016 None Full Exam - General 1994 Neurologic cranial nerves Overall: crainial nerves 2 - 12 grossly intact 12/29/2016 None Full Exam - General 1994 Psychiatric orientation/consciousness Overall: oriented to person, place and time 12/29/2016 None Full Exam - General 1994 Psychiatric mood and affect Overall: normal mood and affect 12/29/2016 None Full Exam - General 1994 Psychiatric appearance Overall: well-groomed, good eye contact 12/29/2016 None Full Exam - General 1994 Constitutional general appearance Overall: well developed 12/13/2016 None Full Exam - General 1994 Constitutional general appearance Overall: in no acute distress 12/13/2016 None Full Exam - General 1994 Constitutional general appearance Overall: well nourished 12/13/2016 None Full Exam - General 1994 Eyes conjunctiva /eyelids Overall: conjunctiva clear 12/13/2016 None Full Exam - General 1994 Eyes pupils and irises Overall: pupils equal, round, reactive to light and accomodation 12/13/2016 None Full Exam - General 1994 Ears/Nose/Throat otoscopic exam Overall: external auditory canals clear 12/13/2016 None Full Exam - General 1994 Ears/Nose/Throat internal nose Sinus tenderness: left maxillary 12/13/2016 None Full Exam - General 1994 Ears/Nose/Throat internal nose Sinus tenderness: right maxillary 12/13/2016 None Full Exam - General 1994 Ears/Nose/Throat oral cavity/pharynx/larynx Posterior Pharynx: clear post nasal drainage 12/13/2016 None Full Exam - General 1994 Ears/Nose/Throat oral cavity/pharynx/larynx Oropharynx: erythema 12/13/2016 None Full Exam - General 1994 Respiratory respiratory effort/rhythm Overall: no retractions 12/13/2016 None Full Exam - General 1994 Respiratory respiratory effort/rhythm Overall: normal rate 12/13/2016 None Full Exam - General 1994 Cardiovascular auscultation of heart Overall: normal heart sounds 12/13/2016 None Full Exam - General 1994 Cardiovascular auscultation of heart Rate: tachycardia 12/13/2016 None Full Exam - General 1994 Lymphatic neck nodes Overall: shotty lymphadenopathy 12/13/2016 None Full Exam - General 1994 Neurologic cranial nerves Overall: crainial nerves 2 - 12 grossly intact 12/13/2016 None Full Exam - General 1994 Psychiatric orientation/consciousness Overall: oriented to person, place and time 12/13/2016 None Full Exam - General 1994 Psychiatric mood and affect Overall: normal mood and affect 12/13/2016 None Full Exam - General 1994 Eyes conjunctiva /eyelids Overall: eyelids normal 12/13/2016 None Full Exam - General 1994 Respiratory auscultation Diffuse: diminished 12/13/2016 None Full Exam - General 1994 Ears/Nose/Throat otoscopic exam Tympanic membrane: erythematous 12/13/2016 mild Full Exam - General 1994 Psychiatric appearance Overall: well-groomed, good eye contact 12/13/2016 None Full Exam - General 1994 Constitutional general appearance Overall: well developed 03/08/2016 None Full Exam - General 1994 Constitutional general appearance Overall: in no acute distress 03/08/2016 None Full Exam - General 1994 Constitutional general appearance Overall: well nourished 03/08/2016 None Full Exam - General 1994 Eyes conjunctiva /eyelids Overall: conjunctiva clear 03/08/2016 None Full Exam - General 1994 Ears/Nose/Throat otoscopic exam Overall: external auditory canals clear 03/08/2016 None Full Exam - General 1994 Ears/Nose/Throat otoscopic exam Tympanic membrane: air- fluid level 03/08/2016 None Full Exam - General 1994 Ears/Nose/Throat oral cavity/pharynx/larynx Posterior Pharynx: clear post nasal drainage 03/08/2016 None Full Exam - General 1994 Respiratory auscultation Overall: breath sounds clear bilaterally 03/08/2016 None Full Exam - General 1994 Respiratory respiratory effort/rhythm Overall: no retractions 03/08/2016 None Full Exam - General 1994 Respiratory respiratory effort/rhythm Overall: normal rate 03/08/2016 None Full Exam - General 1994 Cardiovascular auscultation of heart Overall: normal heart sounds 03/08/2016 None Full Exam - General 1994 Cardiovascular auscultation of heart Rate: tachycardia 03/08/2016 None Full Exam - General 1994 Neurologic cranial nerves Overall: crainial nerves 2 - 12 grossly intact 03/08/2016 None Full Exam - General 1994 Psychiatric orientation/consciousness Overall: oriented to person, place and time 03/08/2016 None Full Exam - General 1994 Psychiatric mood and affect Overall: normal mood and affect 03/08/2016 None Full Exam - General 1994 Ears/Nose/Throat lips/teeth/gingiva Overall: benign lips 03/08/2016 None Full Exam - General 1994 Constitutional general appearance Overall: well developed 02/27/2016 None Full Exam - General 1994 Constitutional general appearance Overall: in no acute distress 02/27/2016 None Full Exam - General 1994 Constitutional general appearance Overall: well nourished 02/27/2016 None Full Exam - General 1994 Eyes conjunctiva /eyelids Overall: conjunctiva clear 02/27/2016 None Full Exam - General 1994 Eyes pupils and irises Overall: pupils equal, round, reactive to light and accomodation 02/27/2016 None Full Exam - General 1994 Ears/Nose/Throat otoscopic exam Overall: external auditory canals clear 02/27/2016 None Full Exam - General 1994 Ears/Nose/Throat otoscopic exam Tympanic membrane: air- fluid level 02/27/2016 None Full Exam - General 1994 Ears/Nose/Throat oral cavity/pharynx/larynx Oropharynx: erythema 02/27/2016 None Full Exam - General 1994 Respiratory auscultation Overall: breath sounds clear bilaterally 02/27/2016 None Full Exam - General 1994 Respiratory respiratory effort/rhythm Overall: no retractions 02/27/2016 None Full Exam - General 1994 Respiratory respiratory effort/rhythm Overall: normal rate 02/27/2016 None Full Exam - General 1994 Cardiovascular auscultation of heart Overall: normal heart sounds 02/27/2016 None Full Exam - General 1994 Cardiovascular auscultation of heart Rate: tachycardia 02/27/2016 None Full Exam - General 1994 Lymphatic neck nodes Overall: shotty lymphadenopathy 02/27/2016 None Full Exam - General 1994 Neurologic cranial nerves Overall: crainial nerves 2 - 12 grossly intact 02/27/2016 None Full Exam - General 1994 Psychiatric orientation/consciousness Overall: oriented to person, place and time 02/27/2016 None Full Exam - General 1994 Ears/Nose/Throat internal nose Sinus tenderness: right maxillary 02/27/2016 None Full Exam - General 1994 Ears/Nose/Throat internal nose Sinus tenderness: left maxillary 02/27/2016 None Full Exam - General 1994 Ears/Nose/Throat oral cavity/pharynx/larynx Posterior Pharynx: clear post nasal drainage 02/27/2016 None Full Exam - General 1994 Psychiatric mood and affect Overall: normal mood and affect 02/27/2016 None Full Exam - General 1994 Constitutional general appearance Overall: well developed 10/01/2015 None Full Exam - General 1994 Constitutional general appearance Overall: in no acute distress 10/01/2015 None Full Exam - General 1994 Constitutional general appearance Overall: well nourished 10/01/2015 None Full Exam - General 1994 Eyes conjunctiva /eyelids Overall: conjunctiva clear 10/01/2015 None Full Exam - General 1994 Eyes pupils and irises Overall: pupils equal, round, reactive to light and accomodation 10/01/2015 None Full Exam - General 1994 Ears/Nose/Throat oral cavity/pharynx/larynx Overall: oral mucosa clear 10/01/2015 bilateral maxillary sinus tenderness Full Exam - General 1994 Respiratory auscultation Overall: breath sounds clear bilaterally 10/01/2015 None Full Exam - General 1994 Respiratory respiratory effort/rhythm Overall: no retractions 10/01/2015 None Full Exam - General 1994 Respiratory respiratory effort/rhythm Overall: normal rate 10/01/2015 None Full Exam - General 1994 Cardiovascular auscultation of heart Overall: normal heart sounds 10/01/2015 None Full Exam - General 1994 Neurologic cranial nerves Overall: crainial nerves 2 - 12 grossly intact 10/01/2015 None Full Exam - General 1994 Psychiatric orientation/consciousness Overall: oriented to person, place and time 10/01/2015 None Full Exam - General 1994 Ears/Nose/Throat lips/teeth/gingiva Overall: benign lips 10/01/2015 None Full Exam - General 1994 Cardiovascular auscultation of heart Rate: tachycardia 10/01/2015 None Full Exam - General 1994 Constitutional general appearance Overall: well developed 07/21/2015 None Full Exam - General 1994 Constitutional general appearance Overall: in no acute distress 07/21/2015 None Full Exam - General 1994 Constitutional general appearance Overall: well nourished 07/21/2015 None Full Exam - General 1994 Eyes conjunctiva /eyelids Overall: conjunctiva clear 07/21/2015 None Full Exam - General 1994 Eyes pupils and irises Overall: pupils equal, round, reactive to light and accomodation 07/21/2015 None Full Exam - General 1994 Ears/Nose/Throat otoscopic exam Overall: external auditory canals clear 07/21/2015 None Full Exam - General 1994 Ears/Nose/Throat oral cavity/pharynx/larynx Overall: oral mucosa clear 07/21/2015 bilateral maxillary sinus tenderness Full Exam - General 1994 Respiratory auscultation Overall: breath sounds clear bilaterally 07/21/2015 None Full Exam - General 1994 Respiratory respiratory effort/rhythm Overall: no retractions 07/21/2015 None Full Exam - General 1994 Respiratory respiratory effort/rhythm Overall: normal rate 07/21/2015 None Full Exam - General 1994 Cardiovascular auscultation of heart Overall: normal heart sounds 07/21/2015 None Full Exam - General 1994 Cardiovascular auscultation of heart Rate: tachycardia 07/21/2015 None Full Exam - General 1994 Lymphatic neck nodes Overall: shotty lymphadenopathy 07/21/2015 None Full Exam - General 1994 Neurologic cranial nerves Overall: crainial nerves 2 - 12 grossly intact 07/21/2015 None Full Exam - General 1994 Psychiatric orientation/consciousness Overall: oriented to person, place and time 07/21/2015 None Full Exam - General 1994 Ears/Nose/Throat otoscopic exam Tympanic membrane: air- fluid level 07/21/2015 None Full Exam - General 1994 Ears/Nose/Throat oral cavity/pharynx/larynx Oropharynx: erythema 07/21/2015 None Full Exam - General 1994 Constitutional general appearance Overall: well developed 05/27/2015 None Full Exam - General 1994 Constitutional general appearance Overall: in no acute distress 05/27/2015 None Full Exam - General 1994 Constitutional general appearance Overall: well nourished 05/27/2015 None Full Exam - General 1994 Eyes conjunctiva /eyelids Overall: conjunctiva clear 05/27/2015 None Full Exam - General 1994 Eyes pupils and irises Overall: pupils equal, round, reactive to light and accomodation 05/27/2015 None Full Exam - General 1994 Ears/Nose/Throat otoscopic exam Overall: external auditory canals clear 05/27/2015 None Full Exam - General 1994 Ears/Nose/Throat otoscopic exam Overall: tympanic membranes clear 05/27/2015 None Full Exam - General 1994 Ears/Nose/Throat oral cavity/pharynx/larynx Overall: oral mucosa clear 05/27/2015 bilateral maxillary sinus tenderness Full Exam - General 1994 Respiratory auscultation Overall: breath sounds clear bilaterally 05/27/2015 None Full Exam - General 1994 Respiratory respiratory effort/rhythm Overall: no retractions 05/27/2015 None Full Exam - General 1994 Respiratory respiratory effort/rhythm Overall: normal rate 05/27/2015 None Full Exam - General 1994 Cardiovascular auscultation of heart Overall: normal heart sounds 05/27/2015 None Full Exam - General 1994 Lymphatic neck nodes Overall: shotty lymphadenopathy 05/27/2015 None Full Exam - General 1994 Neurologic cranial nerves Overall: crainial nerves 2 - 12 grossly intact 05/27/2015 None Full Exam - General 1994 Psychiatric orientation/consciousness Overall: oriented to person, place and time 05/27/2015 None Full Exam - General 1994 Cardiovascular auscultation of heart Rate: tachycardia 05/27/2015 None Full Exam - General 1994 Constitutional general appearance Overall: well developed 08/22/2014 None Full Exam - General 1994 Constitutional general appearance Overall: in no acute distress 08/22/2014 None Full Exam - General 1994 Constitutional general appearance Overall: well nourished 08/22/2014 None Full Exam - General 1994 Psychiatric orientation/consciousness Overall: oriented to person, place and time 08/22/2014 None Full Exam - General 1994 Neurologic cranial nerves Overall: crainial nerves 2 - 12 grossly intact 08/22/2014 None Full Exam - General 1994 Lymphatic neck nodes Overall: shotty lymphadenopathy 08/22/2014 None Full Exam - General 1994 Cardiovascular auscultation of heart Overall: regular rate 08/22/2014 None Full Exam - General 1994 Cardiovascular auscultation of heart Overall: normal heart sounds 08/22/2014 None Full Exam - General 1994 Respiratory auscultation Overall: breath sounds clear bilaterally 08/22/2014 None Full Exam - General 1994 Respiratory respiratory effort/rhythm Overall: no retractions 08/22/2014 None Full Exam - General 1994 Respiratory respiratory effort/rhythm Overall: normal rate 08/22/2014 None Full Exam - General 1994 Ears/Nose/Throat otoscopic exam Overall: external auditory canals clear 08/22/2014 None Full Exam - General 1994 Ears/Nose/Throat otoscopic exam Overall: tympanic membranes clear 08/22/2014 None Full Exam - General 1994 Ears/Nose/Throat oral cavity/pharynx/larynx Overall: oral mucosa clear 08/22/2014 bilateral maxillary sinus tenderness Full Exam - General 1994 Eyes conjunctiva /eyelids Overall: conjunctiva clear 08/22/2014 None Full Exam - General 1994 Eyes pupils and irises Overall: pupils equal, round, reactive to light and accomodation 08/22/2014 None Procedures Procedure Codes Date THER/PROPH/DIAG INJ SC/IM CPT-4: 02094 12/21/2016 TRIAMCINOLONE ACET INJ NOS CPT-4: J3301 12/21/2016 THER/PROPH/DIAG INJ SC/IM CPT-4: 46756 07/21/2015 TRIAMCINOLONE ACET INJ NOS CPT-4: J3301 07/21/2015 ROCEPHIN, PER 250 MG CPT-4: J0696 07/21/2015 TRIAMCINOLONE ACET INJ NOS CPT-4: J3301 08/22/2014 ROCEPHIN, PER 250 MG CPT-4: J0696 08/22/2014 Vital Signs Date Vital 12/29/2016 Blood Pressure 1: 122/80 Code : 8480-6 BMI: 35.4 Code : 04214-3 Heart Rate 1 : 112 bpm Height: 5'3" SpO2: 96% Temperature: 37.2 (C) / 98.9 (F) Weight: 203 lbs 12/13/2016 Blood Pressure 1: 142/88 Code : 8480-6 BMI: 35.4 Code : 86554-4 Heart Rate 1 : 100 bpm Height: 5'3" SpO2: 97% Weight: 203 lbs 03/08/2016 Blood Pressure 1: 158/88 Code : 8480-6 BMI: 35.4 Code : 22908-7 Heart Rate 1 : 107 bpm Height: 5'3" SpO2: 99% Weight: 203 lbs 02/27/2016 Blood Pressure 1: 142/80 Code : 8480-6 BMI: 35.4 Code : 97651-7 Heart Rate 1 : 104 bpm Height: 5'3" SpO2: 99% Weight: 203 lbs 10/01/2015 Blood Pressure 1: 162/94 Code : 8480-6 BMI: 28.2 Code : 51386-7 Heart Rate 1 : 100 bpm Height: 5'3" Weight: 162 lbs 07/21/2015 Blood Pressure 1: 148/88 Code : 8480-6 BMI: 27.9 Code : 59784-4 Heart Rate 1 : 94 bpm Height: 5'3" SpO2: 96% Weight: 160 lbs 05/27/2015 Blood Pressure 1: 148/90 Code : 8480-6 BMI: 30.7 Code : 46536-3 Heart Rate 1 : 102 bpm Height: 5'3" Temperature: 37.4 (C) / 99.4 (F) Weight: 176 lbs 08/22/2014 Blood Pressure 1: 140/88 Code : 8480-6 BMI: 34.9 Code : 18450-1 Heart Rate 1 : 86 bpm Height: 5'3" Temperature: 37.5 (C) / 99.5 (F) Weight: 200 lbs Functional Status No Functional Status data History of Present Illness Symptom Name Status Result Effective Date Notes cough Location in the lung 12/29/2016 None cough Quality constant 12/29/2016 None cough Quality dry None cough Quality hacking 12/29/2016 None cough Onset and Resolution sudden in onset 12/29/2016 None cough Onset of Symptom 3 weeks ago 12/29/2016 None cough Frequency of Episodes daily 12/29/2016 None cough Pertinent Findings chest discomfort 12/29/2016 None sinus congestion Location frontal sinuses 12/13/2016 None sinus congestion Quality fullness 12/13/2016 None sinus congestion Quality pressure 12/13/2016 None sinus congestion Onset and Resolution ongoing 12/13/2016 None sinus congestion Onset of Symptom 1 weeks ago 12/13/2016 None cough Location in the throat 03/08/2016 None cough Quality constant 03/08/2016 None cough Quality hacking 03/08/2016 None cough Quality productive 03/08/2016 None cough Onset and Resolution sudden in onset 03/08/2016 None cough Onset of Symptom 5 days ago 03/08/2016 None cough Frequency of Episodes daily 03/08/2016 None sinus congestion Onset and Resolution sudden in onset 03/08/2016 None sinus congestion Onset of Symptom 5 days ago 03/08/2016 None sinus congestion Pertinent Findings cough 03/08/2016 None sinus congestion Pertinent Findings facial pain 03/08/2016 None sinus congestion Pertinent Findings hoarseness 03/08/2016 None sinus congestion Location on both sides 03/08/2016 None sinus congestion Quality constant 03/08/2016 None sinus congestion Quality fullness 03/08/2016 None sinus congestion Quality pressure 03/08/2016 None earache Location both ears 03/08/2016 None earache Onset and Resolution sudden in onset 03/08/2016 None earache Onset of Symptom 5 days ago 03/08/2016 None earache Frequency of Episodes daily 03/08/2016 None cough Location in the throat 02/27/2016 None cough Quality constant 02/27/2016 None cough Quality hacking 02/27/2016 None cough Quality productive 02/27/2016 None cough Onset and Resolution sudden in onset 02/27/2016 None cough Onset of Symptom 5 days ago 02/27/2016 None cough Frequency of Episodes daily 02/27/2016 None sinus congestion Onset and Resolution sudden in onset 02/27/2016 None sinus congestion Onset of Symptom 5 days ago 02/27/2016 None sinus congestion Pertinent Findings cough 02/27/2016 None sinus congestion Pertinent Findings facial pain 02/27/2016 None sinus congestion Pertinent Findings hoarseness 02/27/2016 None sinus congestion Location on both sides 02/27/2016 None sinus congestion Quality fullness 02/27/2016 None sinus congestion Quality constant 02/27/2016 None sinus congestion Quality pressure 02/27/2016 None earache Location both ears 02/27/2016 None earache Onset and Resolution sudden in onset 02/27/2016 None earache Onset of Symptom 5 days ago 02/27/2016 None earache Frequency of Episodes daily 02/27/2016 None anxiety Onset and Resolution gradual in onset 10/01/2015 None anxiety Onset of Symptom 1 years ago 10/01/2015 None anxiety Quality intermittent 10/01/2015 None anxiety Quality worsening 10/01/2015 None urinary frequency Quality constant 10/01/2015 None urinary frequency Onset and Resolution sudden in onset 10/01/2015 None urinary frequency Onset of Symptom 1 weeks ago 10/01/2015 None urinary urgency Quality constant 10/01/2015 None urinary urgency Onset and Resolution sudden in onset 10/01/2015 None urinary urgency Onset of Symptom 1 weeks ago 10/01/2015 None urinary urgency Pertinent Findings bladder pain 10/01/2015 None cough Location in the throat 07/21/2015 None cough Quality hacking 07/21/2015 None cough Quality productive 07/21/2015 None cough Onset and Resolution sudden in onset 07/21/2015 None cough Onset of Symptom 4 days ago 07/21/2015 None cough Limitation on Activities does not limit activities 07/21/2015 None cough Frequency of Episodes daily 07/21/2015 None sinus congestion Location on both sides 07/21/2015 None sinus congestion Quality fullness 07/21/2015 None sinus congestion Quality pressure 07/21/2015 None sinus congestion Onset and Resolution sudden in onset 07/21/2015 None sinus congestion Onset of Symptom 4 days ago 07/21/2015 None sinus congestion Frequency of Episodes daily 07/21/2015 None sinus congestion Pertinent Findings cough 07/21/2015 None sinus congestion Pertinent Findings facial pain 07/21/2015 None sore throat Location on both sides 07/21/2015 None sore throat Quality dull 07/21/2015 None sore throat Quality scratchy 07/21/2015 None sore throat Onset and Resolution sudden in onset 07/21/2015 None sore throat Onset of Symptom 4 days ago 07/21/2015 None sore throat Frequency of Episodes daily 07/21/2015 None earache Location both ears 07/21/2015 None earache Onset and Resolution sudden in onset 07/21/2015 None earache Onset of Symptom 4 days ago 07/21/2015 None earache Frequency of Episodes daily 07/21/2015 None cough Location in the lung 05/27/2015 None cough Location in the throat 05/27/2015 None cough Quality dry None cough Onset of Symptom 1 weeks ago 05/27/2015 None cough Pertinent Findings chest discomfort 05/27/2015 None cough Pertinent Findings Denies fever 05/27/2015 None cough Pertinent Findings ill contacts 05/27/2015 None sinus congestion Onset and Resolution sudden in onset 05/27/2015 None sinus congestion Onset of Symptom 1-2 weeks ago 05/27/2015 None sinus congestion Pertinent Findings cough 05/27/2015 None sinus congestion Pertinent Findings decreased energy level 05/27/2015 None sinus congestion Pertinent Findings Denies fever 05/27/2015 None cough Onset and Resolution ongoing 05/27/2015 None cough Limitation on Activities does not limit activities 05/27/2015 None cough Frequency of Episodes increasing 05/27/2015 None cough Triggers ill contacts 05/27/2015 None cough Alleviating Factors inhaled medications 05/27/2015 None cough Location in the throat 08/22/2014 None cough Quality productive 08/22/2014 None cough Onset of Symptom 1 weeks ago 08/22/2014 None sinus congestion Onset of Symptom 1 weeks ago 08/22/2014 None sinus congestion Pertinent Findings cough 08/22/2014 None sinus congestion Pertinent Findings decreased energy level 08/22/2014 None sinus congestion Pertinent Findings fever 08/22/2014 None cough Limitation on Activities does not limit activities 08/22/2014 None cough Frequency of Episodes increasing 08/22/2014 None cough Triggers no known associated factors 08/22/2014 None cough Pertinent Findings Denies chest discomfort 08/22/2014 None cough Pertinent Findings Denies dyspnea 08/22/2014 None cough Pertinent Findings fever 08/22/2014 None cough Pertinent Findings nasal congestion 08/22/2014 None cough Pertinent Findings Denies sputum production 08/22/2014 None cough Pertinent Findings Denies vomiting 08/22/2014 None cough Pertinent Findings Denies purulent sputum 08/22/2014 None sinus congestion Onset and Resolution ongoing 08/22/2014 None sinus congestion Severity moderate 08/22/2014 None sinus congestion Frequency of Episodes increasing 08/22/2014 None sinus congestion Triggers no known associated factors 08/22/2014 None sinus congestion Alleviating Factors medication 08/22/2014 None sinus congestion Location on both sides 08/22/2014 None sinus congestion Quality acute 08/22/2014 None Advance Directives No Advance Directive data Encounters Encounter Performer Location Codes Date EST. PATIENT, LEVEL IV Diagnosis: Other allergic rhinitis[ICD10: J30.89] Diagnosis: Cough[ICD10: R05] Fany Naylor MD, [facility] CPT-4: 12191 12/29/2016 [id number] EST. PATIENT, LEVEL III Diagnosis: Acute laryngopharyngitis[ICD10: J06.0] Diagnosis: Other acute sinusitis[ICD10: J01.80] Fany Naylor MD, [facility] CPT-4: 30025 12/13/2016 [id number] EST. PATIENT, LEVEL IV Diagnosis: Acute nasopharyngitis [common cold][ICD10: J00] Fany Naylor MD, [facility] CPT-4: 01278 03/08/2016 06305 EST. PATIENT, LEVEL IV Diagnosis: Acute laryngopharyngitis[ICD10: J06.0] Diagnosis: Other acute sinusitis[ICD10: J01.80] Fany Naylor MD, [facility] CPT-4: 55348 02/27/2016 [id number] EST. PATIENT, LEVEL III Diagnosis: Acute cystitis without hematuria[ICD10: N30.00] Fany Naylor MD, [facility] CPT-4: 94901 10/01/2015 53448 EST. PATIENT, LEVEL III Diagnosis: Acute laryngopharyngitis[ICD10: J06.0] Diagnosis: Acute recurrent maxillary sinusitis[ICD10: J01.01] Fany Naylor MD, [facility] CPT-4: 64929 07/21/2015 ([id number]) [id number] EST. PATIENT, LEVEL III Diagnosis: Acute maxillary sinusitis, unspecified[ICD10: J01.00] Diagnosis: Essential (primary) hypertension[ICD10: I10] Yamilex Naylor MD, [facility] CPT-4: 82527 05/27/2015 Office outpatient new 30 minutes Diagnosis: Acute maxillary sinusitis[ICD9: 461.0] Diagnosis: COUGH[ICD9: 786.2] Diagnosis: ESSENTIAL HYPERTENSION[ICD9: 401.9] Yamilex Naylor MD, [facility] CPT-4: 44148 08/22/2014 Plan of Care Planned Activity Notes Codes Status Date Visit Plan: Allergies - chronic - recommended pt to use allergy medication as prescribed. Pt has been counseled as to the appropriate use of the medication. Pt to call if allergy symptoms are not controlled with the medication. If using nasal spray, instructions as follows: Nasal spray- use twice daily, one spray per nostril twice daily, after 30 minutes, rinse out nose with saline spray.. Use opposite hand per nostril to spray in the nasal steroid allergy spray. If cough worsens, fever develops, or any other concerns notify clinic to start abx. 12/29/2016 Appointment: Fnay Rhodes WPtel: [address] [place], [place] [phone] (15 min) Moderate 12/29/2016 Patient Education: Patient Medication Summary Completed 12/29/2016 Patient Education: Obesity Completed 12/29/2016 Appointment: Nurse Visit 12/21/2016 Patient Education: Patient Medication Summary Completed 12/21/2016 Visit Plan: URI - Pt advised to increase fluids, vitamin C. Discussed natural and expected course of this diagnosis and need to alert me if symptoms do not follow expected course, or if any worse. RX sent to patient' s pharmacy. Sinusitis - Pt has acute infection - pain in face, maxillary region , Pt informed to use decongestant, RX given to patient, sinus rinses also recommended. Call if symptoms do not show improvement. 12/13/2016 Appointment: Fany Rhodes WPtel: [phone] [phone] [place] (15 min) Moderate 12/13/2016 Patient Education: Patient Medication Summary Completed 12/13/2016 Patient Education: Obesity Completed 12/13/2016 Appointment: Yamilex Brown WPtel: [phone] [phone] [place] (30 min) Complex 10/04/2016 Visit Plan: URI - Pt advised to increase fluids, vitamin C. Discussed natural and expected course of this diagnosis and need to alert me if symptoms do not follow expected course, or if any worse. RX sent to patient' s pharmacy. Hypertension - pt states that she had high blood pressure problems with her previous . Pt is to contact her OB for blood pressure management. 03/08/2016 Appointment: Fany Rhodes WPtel: [phone] [phone] [place] (15 min) Moderate 03/08/2016 Patient Education: Patient Medication Summary Completed 03/08/2016 Patient Education: Obesity Completed 03/08/2016 Visit Plan: URI - Pt advised to increase fluids, vitamin C. Discussed natural and expected course of this diagnosis and need to alert me if symptoms do not follow expected course, or if any worse. RX sent to patient' s pharmacy. Sinusitis - Pt has acute infection - pain in face, maxillary region , Pt informed to use decongestant, RX given to patient, sinus rinses also recommended. Call if symptoms do not show improvement. 02/27/2016 Patient Education: Patient Medication Summary Completed 02/27/2016 Patient Education: Obesity Completed 02/27/2016 Visit Plan: UTI - pt with positive urinalysis - culture sent if appropriate. Antibiotic electronically prescribed to pt's pharmacy of choice. Pt to call if symptoms do not improve. 10/01/2015 Patient Education: Patient Medication Summary Completed 10/01/2015 Visit Plan: Sinusitis - Pt has acute infection - pain in face, maxillary region, Pt informed to use decongestant, RX given to patient, sinus rinses also recommended. Call if symptoms do not show improvement. URI - Pt advised to increase fluids, vitamin C. Discussed natural and expected course of this diagnosis and need to alert me if symptoms do not follow expected course , or if any worse. RX sent to patient's pharmacy. 07/21/2015 Patient Education: Patient Medication Summary Completed 07/21/2015 Visit Plan: Hypertension - well controlled - continue with current medications, continue with no added salt diet. Pt has been encouraged to exercise daily. The pt has been advised to call the office if there are any acute concerns about change in blood pressure readings at home. Sinusitis - Pt has acute infection - pain in face, maxillary region, Pt informed to use decongestant, RX given to patient, sinus rinses also recommended. Call if symptoms do not show improvement. 05/27/2015 Appointment: (15 min) Moderate 05/27/2015 Patient Education: Patient Medication Summary Completed 05/27/2015 Patient Education: Hypertension Completed 05/27/2015 Visit Plan: Sinusitis - Pt has acute infection - pain in face, maxillary region, Pt informed to use decongestant, RX given to patient, sinus rinses also recommended. Call if symptoms do not show improvement. Rocephin and kenalog injections today in the office. Hypertension - elevated today-controlled at home per patient report - continue with current medications , continue with no added salt diet. Pt has been encouraged to exercise daily. The pt has been advised to call the office if there are any acute concerns about change in blood pressure readings at home. 08/22/2014 Appointment: Yamilex Brown WPtel: [address] [place], [place] [id number] New Patient 08/22/2014 Patient Education: Patient Medication Summary Completed 08/22/2014 Instructions Comment PATIENT IS TO CHECK BLOOD PRESSURE AND HEART RATE TWO TIMES DAILY AND BRING IN A RECORD OF THE READINGS INTO THE OFFICE IN TWO WEEKS. . Sinusitis - Pt has acute infection - pain in face, maxillary region, Pt informed to use decongestant, RX given to patient, sinus rinses also recommended. Call if symptoms do not show improvement. Rocephin and kenalog injections today in the office. Hypertension - elevated today-controlled at home per patient report - continue with current medications, continue with no added salt diet. Pt has been encouraged to exercise daily. The pt has been advised to call the office if there are any acute concerns about change in blood pressure readings at home. . URI - Pt advised to increase fluids, vitamin C. Discussed natural and expected course of this diagnosis and need to alert me if symptoms do not follow expected course, or if any worse. RX sent to patient's pharmacy. Hypertension - pt states that she had high blood pressure problems with her previous . Pt is to contact her OB for blood pressure management. . UTI - pt with positive urinalysis - culture sent if appropriate. Antibiotic electronically prescribed to pt's pharmacy of choice. Pt to call if symptoms do not improve. . Sinusitis - Pt has acute infection - pain in face, maxillary region, Pt informed to use decongestant, RX given to patient, sinus rinses also recommended. Call if symptoms do not show improvement. URI - Pt advised to increase fluids, vitamin C. Discussed natural and expected course of this diagnosis and need to alert me if symptoms do not follow expected course, or if any worse. RX sent to patient's pharmacy. . Allergies - chronic - recommended pt to use allergy medication as prescribed. Pt has been counseled as to the appropriate use of the medication. Pt to call if allergy symptoms are not controlled with the medication. If using nasal spray, instructions as follows: Nasal spray- use twice daily, one spray per nostril twice daily, after 30 minutes, rinse out nose with saline spray.. Use opposite hand per nostril to spray in the nasal steroid allergy spray. If cough worsens, fever develops, or any other concerns notify clinic to start abx. . Hypertension - well controlled - continue with current medications, continue with no added salt diet. Pt has been encouraged to exercise daily. The pt has been advised to call the office if there are any acute concerns about change in blood pressure readings at home. Sinusitis - Pt has acute infection - pain in face, maxillary region, Pt informed to use decongestant, RX given to patient, sinus rinses also recommended. Call if symptoms do not show improvement. . URI - Pt advised to increase fluids, vitamin C. Discussed natural and expected course of this diagnosis and need to alert me if symptoms do not follow expected course, or if any worse. RX sent to patient's pharmacy. Sinusitis - Pt has acute infection - pain in face, maxillary region, Pt informed to use decongestant, RX given to patient, sinus rinses also recommended. Call if symptoms do not show improvement. . URI - Pt advised to increase fluids, vitamin C. Discussed natural and expected course of this diagnosis and need to alert me if symptoms do not follow expected course, or if any worse. RX sent to patient's pharmacy. Sinusitis - Pt has acute infection - pain in face, maxillary region, Pt informed to use decongestant, RX given to patient, sinus rinses also recommended. Call if symptoms do not show improvement.
[2018-07-23] MEDS ORDERED: PROMETHAZINE INJ 25 MG/ML (PHENERGAN) AMP IVP ONE (17:30)
[2018-07-23] MEDS ORDERED: NS IV 1000 ML 1,000 ML IV SCH ×2 (17:30→20:00)
[2018-07-23 17:38] LABS: BASOPHILS % (AUTO) 0 % (0-10); EOSINOPHILS % (AUTO) 0 % (0-10); HEMATOCRIT 38 % (35-52); HEMOGLOBIN 13.4 G/DL (11.5-16.0); LYMPHOCYTES # (AUTO) 1.4 X 10^3 (1.0-4.0); LYMPHOCYTES % (AUTO) 10 % (12-44); MEAN CORPUSCULAR HEMOGLOBIN 29 PG (25-34); MEAN CORPUSCULAR HGB CONC 35 G/DL (32-36); MEAN CORPUSCULAR VOLUME 82 FL (80-99); MEAN PLATELET VOLUME 8.6 FL (7.4-10.4); MONOCYTES % (AUTO) 7 % (0-12); NEUTROPHILS # (AUTO) 12.4 X 10^3 (1.8-7.8); NEUTROPHILS % (AUTO) 83 % (42-75); PLATELET COUNT 571 10^3/uL (130-400); RED BLOOD COUNT 4.63 10^6/uL (4.35-5.85); RED CELL DISTRIBUTION WIDTH 13.1 % (10.0-14.5); WHITE BLOOD COUNT 14.8 10^3/uL (4.3-11.0)
[2018-07-23] MEDS ORDERED: fentaNYL INJECTION 100 MCG/2 ML AMP IVP ONE (17:45)
[2018-07-23 17:51] LABS: ALANINE AMINOTRANSFERASE 15 U/L (0-55); ALBUMIN 4.3 GM/DL (3.2-4.5); ALKALINE PHOSPHATASE 62 U/L (40-136); AMYLASE 33 U/L (25-125); BUN/CREATININE RATIO 17; CALCIUM 9.5 MG/DL (8.5-10.1); CARBON DIOXIDE 21 MMOL/L (21-32); CHLORIDE 99 MMOL/L (98-107); CREATININE SERUM 0.88 MG/DL (0.60-1.30); GFR ESTIMATED > 60; GLUCOSE 140 MG/DL (70-105); LIPASE 21 U/L (8-78); POTASSIUM 3.7 MMOL/L (3.6-5.0); SODIUM 136 MMOL/L (135-145)
[2018-07-23] MEDS ORDERED: ONDANSETRON 4 MG/2 ML (SDV) Z0FRAN IVP ONE (18:00)
[2018-07-23 18:07] LABS: BAND NEUTROPHILS 0 %; BASOPHILS % (MANUAL) 0 %; EOSINOPHILS % (MANUAL) 0 %; LYMPHOCYTES % (MANUAL) 7 %; MONOCYTES % (MANUAL) 5 %; NEUTROPHILS % (MANUAL) 84 %; REACTIVE LYMPHOCYTES 4 %
[2018-07-23 18:08] LABS: PLATELET CLUMPS OCCASIONAL; ROULEAUX SLIGHT
[2018-07-23] MEDS ORDERED: NS 100 ML (IVPB) BAG IV ONE (19:15)
[2018-07-23] MEDS ORDERED: IOHEXOL 350 MG/ML 100 ML (OMNIPAQUE 350) VIAL IV ONE (19:15)
[2018-07-23] MEDS ORDERED: METOCLOPRAMIDE INJ 10 MG/2 ML (REGLAN) IVP ONE (19:30)
--- NOTE | 2018-07-23 19:30 | Diagnostic Imaging Report ---
PROCEDURE: CT abdomen and pelvis with contrast. TECHNIQUE: Multiple contiguous axial images were obtained through the abdomen and pelvis after administration of intravenous contrast. INDICATION: Lower abdominal pain COMPARISON: 03/15/18 FINDINGS: New physiologic follicle is seen on the left ovary measuring approximately 4 cm. There is no edema to suggest torsion. There is no abscess or free fluid. The right adnexa is normal. Distal ureters and urinary bladder are normal. Course and caliber of the large and small bowel unremarkable. The appendix is normal. Solid organs, gallbladder, vascular structures and lung bases are clear. Bony structures normal. IMPRESSION: 1. A 4 cm cyst left ovary likely a physiologic follicle. This may be followed up with ultrasound in approximately 4-6 weeks to assure resolution. 2. Remainder of the abdomen and pelvis is within normal limits. Dictated by: Dictated on workstation # [id number]
[2018-07-23] MEDS ORDERED: diphenhydrAMINE 50 MG/ML INJ (BENADRYL) IM ONE (19:45)
[2018-07-23] MEDS ORDERED: SCOPOLAMINE 1.5 MG (TRANSDERM-SCOP) PATCH TD ONE (20:00)
[2018-07-23] MEDS ORDERED: diphenhydrAMINE 50 MG/ML INJ (BENADRYL) IVP ONE (20:45)
[2018-07-23] MEDS ORDERED: PROM25TA14 PO (21:05)
--- NOTE | 2018-07-23 21:06 | ED Abdominal Pain ---
General Chief Complaint: Abdominal/GI Problems Stated Complaint: V/D Nursing Triage Note: AMB TO ROOM C/O NAUSEA AND VOMITING. ONSET THIS AM Sepsis Screen: No Definite Risk Source of Information: Patient Exam Limitations: No Limitations History of Present Illness Date Seen by Provider: Jul 23, 2018 Time Seen by Provider: 17:27 Initial Comments Patient is a 33-year-old female who presents to emergency room with complaints of severe nausea, vomiting, and abdominal cramping that started this morning when she woke up. She denies any fevers, diarrhea or constipation. Timing/Duration: 12-24 Hours Severity/Quality: Cramping Location: Generalized Abdomen Radiation: Back Associated Symptoms: Nausea/Vomiting Allergies and Home Medications Allergies Coded Allergies: clindamycin (Verified Allergy, Intermediate, 03/15/18) Home Medications Lisinopril/Hydrochlorothiazide 1 Each Tablet, 1 EACH PO DAILY, (Reported) Promethazine HCl 25 Mg Tablet, 25 MG PO Q6H PRN for NAUSEA/VOMITING Prescribed by: JEFF JACQUES on 03/15/18 1657 Promethazine HCl 25 Mg Tablet, 25 MG PO Q6H PRN for NAUSEA/VOMITING Prescribed by: SANTO PADRON on 07/23/18 2105 Patient Home Medication List Home Medication List Reviewed: Yes Past Ulvdomh-Vkywlh-Gcugxr Hx Patient Social History Alcohol Use: Denies Use Recreational Drug Use: No Smoking Status: Never a Smoker Recent Foreign Travel: No Contact w/Someone Who Travel: No Recent Infectious Disease Expo: No Recent Hopitalizations: No Seasonal Allergies Seasonal Allergies: Yes Past Medical History Surgeries: Yes Tubal Ligation Respiratory: No Cardiac: Yes Hypertension Neurological: Yes Headaches /Migraines 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 oz. 88.381235km; BMI Method:Stated Progress/Results/Core Measures Results/Orders Lab Results Laboratory Tests Test 07/23/18 17:20 12/16/18 21:07 Range/Units White Blood Count 14.8 H 4.3-11.0 10^3/uL Red Blood Count 4.63 4.35-5.85 10^6/uL Hemoglobin 13.4 11.5-16.0 G/DL Hematocrit 38 35-52 % Mean Corpuscular Volume 82 80-99 FL Mean Corpuscular Hemoglobin 29 25-34 PG Mean Corpuscular Hemoglobin Concent 35 32-36 G/DL Red Cell Distribution Width 13.1 10.0-14.5 % Platelet Count 571 H 130-400 10^3/uL Mean Platelet Volume 8.6 7.4-10.4 FL Neutrophils (%) (Auto) 83 H 42-75 % Lymphocytes (%) (Auto) 10 L 12-44 % Monocytes (%) (Auto) 7 0-12 % Eosinophils (%) (Auto) 0 0-10 % Basophils (%) (Auto) 0 0-10 % Neutrophils # (Auto) 12.4 H 1.8-7.8 X 10^3 Lymphocytes # (Auto) 1.4 1.0-4.0 X 10^3 Monocytes # (Auto) 1.0 0.0-1.0 X 10^3 Eosinophils # (Auto) 0.0 0.0-0.3 10^3/uL Basophils # (Auto) 0.0 0.0-0.1 10^3/uL Neutrophils % (Manual) 84 % Lymphocytes % (Manual) 7 % Monocytes % (Manual) 5 % Eosinophils % (Manual) 0 % Basophils % (Manual) 0 % Band Neutrophils 0 % Reactive Lymphocytes 4 % Clumped Platelets OCCASIONAL Rouleau SLIGHT Sodium Level 136 135-145 MMOL/L Potassium Level 3.7 3.6-5.0 MMOL/L Chloride Level 99 98-107 MMOL/L Carbon Dioxide Level 21 21-32 MMOL/L Anion Gap 16 H 5-14 MMOL/L Blood Urea Nitrogen 15 7-18 MG/DL Creatinine 0.88 0.60-1.30 MG/DL Estimat Glomerular Filtration Rate > 60 BUN/Creatinine Ratio 17 Glucose Level 140 H 70-105 MG/DL Calcium Level 9.5 8.5-10.1 MG/DL Corrected Calcium 9.3 8.5-10.1 MG/DL Total Bilirubin 1.0 0.1-1.0 MG/DL Aspartate Amino Transf (AST/SGOT) 14 5-34 U/L Alanine Aminotransferase (ALT/SGPT) 15 0-55 U/L Alkaline Phosphatase 62 40-136 U/L Total Protein 8.0 6.4-8.2 GM/DL Albumin 4.3 3.2-4.5 GM/DL Amylase Level 33 25-125 U/L Lipase 21 8-78 U/L Serum Test, Qualitative NEGATIVE NEGATIVE My Orders Orders - SANTO PADRON Comprehensive Metabolic Panel (07/23/18 17:26) Lipase (07/23/18 17:26) Amylase (07/23/18 17:26) Ua Culture If Indicated (07/23/18 17:26) Saline Lock/Iv-Start (07/23/18 17:26) Cbc With Automated Diff (07/23/18:) Ns Iv 1000 Ml (Sodium Chloride 0.9%) (07/23/18 17:30) Promethazine Injection (Phenergan Injec (07/23/18 17:30) Manual Differential (07/23/18 17:20) Fentanyl Injection (Sublimaze Injection (07/23/18 17:45) Ondansetron Injection (Zofran Injectio (07/23/18 18:00) Ct Abdomen/Pelvis W (07/23/18 18:35) Hcg,Qualitative Serum (07/23/18 18:36) Iohexol Injection (Omnipaque 350 Mg/Ml 1 (07/23/18 19:15) Ns (Ivpb) (Sodium Chloride 0.9% Ivpb Bag (07/23/18 19:15) Metoclopramide Injection (Reglan Injecti (07/23/18 19:30) Diphenhydramine Injection (Benadryl Inje (07/23/18 19:45) Ns Iv 1000 Ml (Sodium Chloride 0.9%) (07/23/18 20:00) Scopolamine Patch (Transderm-Scop Patch) (07/23/18 20:00) Diphenhydramine Injection (Benadryl Inje (07/23/18 20:45) Medications Given in ED Current Medications Medications Dose Ordered Sig/Amilcar Route Start Time Stop Time Status Last Admin Dose Admin Diphenhydramine HCl 25 mg ONCE ONCE IVP 07/23/18 20:45 07/23/18 20:46 DC 12/16/18 20:35 25 MG Fentanyl Citrate 25 mcg ONCE ONCE IVP 07/23/18 17:45 07/23/18 17:46 DC 07/23/18 17:51 25 MCG Iohexol 100 ml ONCE ONCE IV 07/23/18 19:15 07/23/18 19:20 DC 07/23/18 19:17 100 ML Metoclopramide HCl 5 mg ONCE ONCE IVP 07/23/18 19:30 07/23/18 19:31 DC 07/23/18 20:02 5 MG Ondansetron HCl 8 mg ONCE ONCE IVP 07/23/18 18:00 07/23/18 18:01 DC 07/23/18 18:07 8 MG Promethazine HCl 25 mg ONCE ONCE IVP 07/23/18 17:30 07/23/18 17:31 DC 07/23/18 17:33 25 MG Scopolamine 1.5 mg ONCE ONCE TD 07/23/18 20:00 07/23/18 20:01 DC 07/23/18 20:04 1.5 MG Sodium Chloride 100 ml ONCE ONCE IV 07/23/18 19:15 07/23/18 19:20 DC 07/23/18 19:17 80 ML Vital Signs/I&O 07/23/18 17:12 Temp 98.2 Pulse 98 Resp 18 B/P (MAP) 123/98 (106) Pulse Ox 98 O2 Delivery Room Air Blood Pressure Mean: 106 Departure Impression Primary Impression: Nausea and vomiting Disposition: 01 HOME, SELF-CARE Condition: Stable/Unchanged Departure-Patient Inst. Decision time for Depature: 21:04 Referrals: RAMÓN NAYLOR MD (PCP/Family) Primary Care Physician Patient Instructions: Nausea and Vomiting, Adult (DC) Add. Discharge Instructions: Take medications as directed. Removed the scopolamine patch in 2 days from behind the ear. Clear liquid diet for the next 24 hours and advance as tolerated. Follow-up with Dr. Naylor within 1 week for recheck. Return back to the emergency room for any worsening symptoms or concerns as needed. All discharge instructions reviewed with patient and/or family. Voiced understanding. Scripts Promethazine HCl (Promethazine Tablet) 25 Mg Tablet 25 MG PO Q6H PRN for NAUSEA/VOMITING, #14 TAB Prov: SANTO PADRON 07/23/18 SANTO PADRON Jul 23, 2018 21:06
[2018-07-23 21:13] LABS: BILIRUBIN,URINE NEGATIVE (NEGATIVE); CLARITY,URINE CLEAR; COLOR,URINE YELLOW; GLUCOSE, URINE (UA) NEGATIVE (NEGATIVE); KETONES,URINE 4+ (NEGATIVE); LEUKOCYTE ESTERASE ,URINE 1+ (NEGATIVE); NITRITE,URINE NEGATIVE (NEGATIVE); PH,URINE 8 (5-9); PROTEIN,URINE 2+ (NEGATIVE); UROBILINOGEN,URINE 1 MG/DL (NORMAL)
[2018-07-23] MEDS ORDERED: RX-PHENERGAN 25 MG SUPP PPK#3 PR STA (21:15)
[2018-07-23] MEDS ORDERED: RX-ONDANSETRON 4 MG ODT (ZOFRAN) PPK #4 PO STA (21:15)
[2018-07-23 21:25] LABS: WBC,URINE RARE /HPF
[2018-07-23 21:26] LABS: BACTERIA,URINE TRACE /HPF; SQUAMOUS EPITHELIAL CELL,UR 25-50 /HPF
[2018-07-23 21:35] VITALS: BP 136/81
== END 2018-07-23 21:35 | disposition home or self-care (01) ==
LOC: EDUNIT# 17:09 → ER 17:10
DX: R11.2 Nausea with vomiting, unspecified (principal); I10 Essential (primary) hypertension; G43.909 Migraine, unspecified, not intractable, without status migrainosus; Z88.0 Allergy status to penicillin; Z98.51 Tubal ligation status
CPT/HCPCS: 36415; 74177; 80053; 81000; 82150; 83690; 84703; 85007; 85027

== ENCOUNTER 2018-08-27 23:31 | Inpatient (IN) | payer BC | END 2018-08-30 20:15 | disposition home or self-care (01) | LOC: 4TH 08-28 05:18 → ER 23:31 ==

== ENCOUNTER 2022-04-01 08:29 | Day surgery (SDC) | payer BC ==
[~2022-04-01] VITALS: Ht 160 cm; Wt 95.0 kg
[2022-04-01] VITALS (10 sets, daily range): BP systolic 114–144; BP diastolic 56–91
[~2022-04-01 08:29] MED LIST changes: +ACHD5005 PO; -CITA10TA7 PO; +CITA10TA9 PO; +CITA20TA9 PO; +FOLI1TAB6 PO; +LISI1TAB46 PO; -LISI1TAB8 PO; +MELO7.5T46 PO; +ONDN4T PO
[2022-04-01] MEDS ORDERED: fentaNYL INJ 100 MCG/2 ML AMP IVP STA ×3 (08:49→11:27)
[2022-04-01] MEDS ORDERED: KETOROLAC 30 MG/ML VIAL IVP STA (08:49)
--- NOTE | 2022-04-01 08:58 | ED Abdominal Pain ---
General Chief Complaint: Abdominal/GI Problems Stated Complaint: LOWER ABD PAIN/PRESSURE Nursing Triage Note: PT STATES LOWER ABD PAIN THAT STARTED LAST NIGHT ABOUT 1800, NORMAL BM NO PAIN ON URINATION Source of Information: Patient Exam Limitations: No Limitations History of Present Illness Date Seen by Provider: Apr 01, 2022 Time Seen by Provider: 08:43 Initial Comments Patient is here with right lower quadrant abdominal pain that started about 6 PM last night and has persisted since then. States that it is worse this morning and went from the right lower quadrant and is now radiating up the right side. Reports normal BM and normal urination. Mild nausea but no vomiting. No fevers or chills. She does still have her appendix but has had her gallbladder removed. She has not taken anything for pain this morning. Denies blood in her urine or stool. Timing/Duration: 12 Hours Severity/Quality: Moderate, Severe Location: RLQ Radiation: Flank (Right) Modifying Factors: Worsens With Lying down, Worsens With Movement, Worsens With Palpation; Improves With Resting Associated Symptoms: No Back Pain, No Chest Pain, No Fever/Chills; Nausea/Vomiting Allergies and Home Medications Allergies Coded Allergies: clindamycin (Verified Allergy, Intermediate, 08/27/18) Patient Home Medication List Home Medication List Reviewed: Yes Citalopram Hydrobromide (Citalopram HBr) 20 Mg Tablet, 20 MG PO DAILY, (Reported) Entered as Reported by: ELSY CARRILLO on 08/28/18 1003 Hydrocodone Bit/Acetaminophen (Lortab 5 Mg Tablet) 1 Tab Tab, 1-2 TAB PO Q6H PRN for PAIN-MODERATE Prescribed by: HEIKE NATION on 08/30/18 1524 Lisinopril/Hydrochlorothiazide (Lisinopril-Hctz 20-12.5 mg Tab) 1 Each Tablet, 1 TAB PO DAILY, (Reported) Entered as Reported by: DENNIS SCHWARZ on 03/15/18 1442 Meloxicam (Meloxicam) 7.5 Mg Tablet, 7.5 MG PO DAILY PRN for BACK PAIN, (Reported) Entered as Reported by: ELSY CARRILLO on 08/28/18 1003 Multivitamin/Iron/Folic Acid (Centrum Complete Multivit Tab) 1 Each Tablet, 1 TAB PO DAILY, (Reported) Entered as Reported by: ELSY CARRILLO on 08/28/18 1003 Ondansetron HCl (Zofran) 4 Mg Tab, 4 MG PO Q6H Prescribed by: INGRIS GAMEZ on 08/30/18 1842 Review of Systems Review of Systems Constitutional: see HPI; No chills, No fever EENTM: No Nose Congestion, No Throat Pain Respiratory: Denies Cough, Denies SOA at Rest Cardiovascular: Denies Chest Pain, Denies Edema Gastrointestinal: Abdominal Pain, Nausea Genitourinary: Denies Frequency; Flank Pain; Denies Hematuria Musculoskeletal: No back pain, No neck pain Skin: no symptoms reported All Other Systems Reviewed Negative Unless Noted: Yes Past Rurruad-Cbdjkk-Kwqfpa Hx Patient Social History Tobacco Use?: No Substance use?: No Alcohol Use?: Yes Alcohol type: Wine Alcohol Frequency: Rarely Immunizations Up To Date PED Vaccines UTD: Yes Third COVID19 Vaccination Date: 05/2021 Seasonal Allergies Seasonal Allergies: Yes Past Medical History Surgery/Hospitalization HX: TUBAL LIGATION Surgeries: Yes Tubal Ligation Respiratory: Yes Asthma Currently Using CPAP: No Currently Using BIPAP: No Cardiac: Yes Hypertension Neurological: Yes Headaches /Migraines Last Menstrual Period: Mar 03, 2022 Female Reproductive Disorders: Ovarian Cyst [employer]OR History: Tubal Ligation Sexually Transmitted Disease: No HIV/AIDS: No Genitourinary: No Gastrointestinal: Yes Gastroesophageal Reflux Musculoskeletal: No Endocrine: No HEENT: No Loss of Vision: Denies Hearing Impairment: Denies Cancer: No Psychosocial: Yes Anxiety Integumentary: Yes Eczema Blood Disorders: No Adverse Reaction/Blood Tranf: No Family Medical History Reviewed Nursing Family Hx FH: factor V Leiden mutation G8 SISTER Hypertension 19 FATHER 19 MOTHER Heart Disease, Hypertension, Other Conditions/Hx Physical Exam Vital Signs Vital Signs - First Documented 04/01/22 08:35 Temp 36.5 Pulse 122 Resp 22 B/P (MAP) 151/104 (120) Pulse Ox 100 O2 Delivery Room Air Capillary Refill : Less Than 3 Seconds Height/Weight/BMI Height: 5'4.00" Weight: 200lbs. 0.0oz. [id number]; 37.00 BMI Method:Stated General Appearance: WD/WN, no apparent distress HEENT: PERRL/EOMI, pharynx normal Neck: full range of motion, supple Respiratory: lungs clear, normal breath sounds Cardiovascular: regular rate, rhythm, no murmur Gastrointestinal: soft; No guarding, No rebound; tenderness (Right lower quadrant) Extremities: non-tender, normal inspection Back: normal inspection, no CVA tenderness, no vertebral tenderness Neurologic/Psychiatric: alert, oriented x 3 Skin: normal color, warm/dry Progress/Results/Core Measures Results/Orders Lab Results Laboratory Tests Test 04/01/22 08:55 04/01/22 10:50 Range/Units White Blood Count 15.5 H 4.3-11.0 10^3/uL Red Blood Count 4.50 3.80-5.11 10^6/uL Hemoglobin 13.4 11.5-16.0 g/dL Hematocrit 38 35-52 % Mean Corpuscular Volume 84 80-99 fL Mean Corpuscular Hemoglobin 30 25-34 pg Mean Corpuscular Hemoglobin Concent 35 32-36 g/dL Red Cell Distribution Width 12.6 10.0-14.5 % Platelet Count 458 H 130-400 10^3/uL Mean Platelet Volume 8.8 L 9.0-12.2 fL Immature Granulocyte % (Auto) 1 % Neutrophils (%) (Auto) 79 H 42-75 % Lymphocytes (%) (Auto) 13 12-44 % Monocytes (%) (Auto) 6 0-12 % Eosinophils (%) (Auto) 1 0-10 % Basophils (%) (Auto) 1 0-10 % Neutrophils # (Auto) 12.3 H 1.8-7.8 10^3/uL Lymphocytes # (Auto) 2.0 1.0-4.0 10^3/uL Monocytes # (Auto) 1.0 0.0-1.0 10^3/uL Eosinophils # (Auto) 0.1 0.0-0.3 10^3/uL Basophils # (Auto) 0.1 0.0-0.1 10^3/uL Immature Granulocyte # (Auto) 0.1 0.0-0.1 10^3/uL Neutrophils % (Manual) 84 % Lymphocytes % (Manual) 9 % Monocytes % (Manual) 7 % Blood Morphology Comment NORMAL Sodium Level 138 135-145 MMOL/L Potassium Level 3.4 L 3.6-5.0 MMOL/L Chloride Level 100 98-107 MMOL/L Carbon Dioxide Level 24 21-32 MMOL/L Anion Gap 14 5-14 MMOL/L Blood Urea Nitrogen 14 7-18 MG/DL Creatinine 1.00 0.60-1.30 MG/DL Estimat Glomerular Filtration Rate 74 BUN/Creatinine Ratio 14 Glucose Level 151 H 70-105 MG/DL Calcium Level 9.7 8.5-10.1 MG/DL Corrected Calcium 9.4 8.5-10.1 MG/DL Total Bilirubin 0.9 0.1-1.0 MG/DL Aspartate Amino Transf (AST/SGOT) 18 5-34 U/L Alanine Aminotransferase (ALT/SGPT) 19 0-55 U/L Alkaline Phosphatase 44 40-136 U/L C-Reactive Protein High Sensitivity 1.19 H 0.00-0.50 MG/DL Total Protein 8.0 6.4-8.2 GM/DL Albumin 4.4 3.2-4.5 GM/DL Serum Test, Qualitative NEGATIVE NEGATIVE Urine Color YELLOW Urine Clarity CLEAR Urine pH 6.5 5-9 Urine Specific [place] 1.025 H 1.016-1.022 Urine Protein 2+ H NEGATIVE Urine Glucose (UA) NEGATIVE NEGATIVE Urine Ketones 2+ H NEGATIVE Urine Nitrite NEGATIVE NEGATIVE Urine Bilirubin 1+ H NEGATIVE Urine Urobilinogen 0.2 < = 1.0 MG/DL Urine Leukocyte Esterase NEGATIVE NEGATIVE Urine RBC (Auto) NEGATIVE NEGATIVE Urine RBC NONE /HPF Urine WBC NONE /HPF Urine Crystals NONE /LPF Urine Bacteria NEGATIVE /HPF Urine Casts NONE /LPF Urine Mucus NEGATIVE /LPF Urine Culture Indicated NO My Orders Orders - MARIO GUTHRIE MD Cbc With Automated Diff (04/01/22 08:49) Comprehensive Metabolic Panel (04/01/22 08:49) Hs C Reactive Protein (04/01/22 08:49) Hcg,Qualitative Serum (04/01/22 08:49) Ua Culture If Indicated (04/01/22 08:49) Ed Iv/Invasive Line Start (04/01/22 08:49) Ns Iv 1000 Ml (Sodium Chloride 0.9%) (04/01/22 09:00) Fentanyl Inj (Sublimaze Injection) (04/01/22 08:49) Ketorolac Injection (Toradol Injection) (04/01/22 08:49) Ondansetron Injection (Zofran Injectio (04/01/22 09:00) Manual Differential (04/01/22 08:55) Lactated Ringers (Lr 1000 Ml Iv Solution (04/01/22 10:22) Fentanyl Inj (Sublimaze Injection) (04/01/22 10:40) Fentanyl Inj (Sublimaze Injection) (04/01/22 11:27) Lactated Ringers (Lr 1000 Ml Iv Solution (04/01/22 11:42) Lactated Ringers (Lr 1000 Ml Iv Solution (04/01/22 12:00) Ct Abdomen/Pelvis W (04/01/22 12:04) Iohexol Injection (Omnipaque 350 Mg/Ml 1 (04/01/22 12:30) Ns (Ivpb) (Sodium Chloride 0.9% Ivpb Bag (04/01/22 12:30) Hydromorphone Injection (Dilaudid Inject (04/01/22 13:00) Ondansetron Injection (Zofran Injectio (04/01/22 13:00) Ondansetron Injection (Zofran Injectio (04/01/22 12:58) Ed Iv/Invasive Line Start (04/01/22 13:08) Red Cells Leukocytes Reduced (04/01/22 13:16) Type And Screen (04/01/22 13:16) Medications Given in ED Current Medications Medications Dose Ordered Sig/Amilcar Route Start Time Stop Time Status Last Admin Dose Admin Hydromorphone HCl 1 mg ONCE ONCE IV 04/01/22 13:00 04/01/22 13:01 DC 04/01/22 13:00 1 MG Iohexol 100 ml ONCE ONCE IV 04/01/22 12:30 04/01/22 12:31 DC 04/01/22 12:30 80 ML Ondansetron HCl 4 mg ONCE ONCE IVP 04/01/22 09:00 04/01/22 09:01 DC 04/01/22 09:01 4 MG Ondansetron HCl 4 mg ONCE ONCE IVP 04/01/22 13:00 04/01/22 13:01 DC 04/01/22 13:00 4 MG Sodium Chloride 100 ml ONCE ONCE IV 04/01/22 12:30 04/01/22 12:31 DC 04/01/22 12:30 80 ML Sodium Chloride 1,000 ml @ 0 mls/hr Q0M ONCE IV 04/01/22 09:00 04/01/22 09:01 DC 04/01/22 09:01 1,000 MLS/HR Vital Signs/I&O 04/01/22 04/01/22 04/01/22 04/01/22 08:35 09:01 09:02 10:52 Temp 36.5 36.5 36.5 36.5 Pulse 122 Resp 22 B/P (MAP) 151/104 (120) Pulse Ox 100 O2 Delivery Room Air 04/01/22 04/01/22 11:38 13:00 Temp 36.5 36.5 Blood Pressure Mean: 120 Progress Progress Note : Progress Note Seen and evaluated. IV, labs and UA ordered. Concern for appendicitis, ureteral stone and ovarian cyst. Anticipate CT abdomen and pelvis but we will wait for UA to determine contrast. Fentanyl 50 mcg IV, Toradol 30 mg IV and Zofran 4 mg IV as well as normal saline 1 L bolus ordered. Monitor patient. 1022: Pain improved. We will repeat LR 1 L bolus. Patient did provide urine sample that was too small to evaluate. We are waiting for new urine and then we will proceed with CT scan based on that study. 1207: CT abdomen pelvis with contrast ordered as patient's UA does not show blood. I have repeated dose of fentanyl 50 mcg and then another dose at 75 mcg for pain. Monitor patient. 1300: CT results noted and are concerning for hemoperitoneum and possible ovar danis torsion versus mass. Patient is having rather significant pain. Dilaudid 1 mg IV has been ordered as well as Zofran 4 mg IV. We will add a second line. I have discussed the case with Dr. FLORES who will see the patient in the ER. Patient has remained n.p.o. throughout the ED stay. 1330: Patient has been seen by Dr. FLORES in the emergency department. He is taken her to the OR. This was discussed with the patient and family who agree. Second line has been established and we have ordered type and cross for 2 units to hold in case he needs that during the surgery. Diagnostic Imaging Diagonstic Imaging: CT Plain Films/CT/US/NM/MRI: abdomen, pelvis Comments [facility] [place], [place] NAME: LEONA RIOS [facility] REC#: [id number] PT STATUS: REG ER : 1985 PHYSICIAN: MARIO GUTHRIE MD ADMIT DATE: 04/01/22/ER Draft Date of Exam:04/01/22 CT ABDOMEN/PELVIS W PROCEDURE: CT abdomen and pelvis with contrast. TECHNIQUE: Multiple contiguous axial images were obtained through the abdomen and pelvis after administration of intravenous contrast. Auto Exposure Controls were utilized during the CT exam to meet ALARA standards for radiation dose reduction. All CT scans use one or more of the following dose optimizing techniques: automated exposure control, MA and/or KvP adjustment based on patient size and exam type or iterative reconstruction. INDICATION: Right lower quadrant pain Lung bases are clear. Liver appears normal. The gallbladder surgically absent. The portal vein is patent. There is reservoir effect of the common duct. Pancreas is unremarkable. Spleen is not enlarged. There is ascites present which is predominantly in the perisplenic area and left paracolic gutter. Small bowel is not dilated. Colon appears normal. There appears to be probable large hematoma in the cul-de-sac. There is a complex right adnexal mass with solid and cystic components. The uterus appears grossly normal. IMPRESSION: Hemoperitoneum. Complex right adnexal mass could be from ovarian torsion with hemorrhage or neoplasm. Dictated on workstation # [id number] Dict: 04/01/22 1238 Trans: 04/01/22 1246 [facility] [id number] Interpreted by: MARIO ARZATE MD Electronically signed by: Departure Communication (Admissions) Time/Spoke to Admitting Phy: 12:57 Impression Primary Impression: Hemoperitoneum Disposition: ADMITTED INPATIENT Condition: Stable Admissions Decision to Admit Reason: Admit from ER (General) Decision to Admit/Date: Apr 01, 2022 Time/Decision to Admit Time: 12:57 Departure-Patient Inst. Referrals: RAMÓN MUNROE MD (PCP/Family) Primary Care Physician MARIO GUTHRIE MD Apr 01, 2022 08:58
[2022-04-01] MEDS ORDERED: NS IV 1000 ML 1,000 ML IV ONE (09:00)
[2022-04-01] MEDS ORDERED: ONDANSETRON 4 MG/2 ML (SDV) Z0FRAN IVP ONE ×2 (09:00→13:00)
[2022-04-01 09:01] LABS: BASOPHILS # (AUTO) 0.1 10^3/uL (0.0-0.1); BASOPHILS % (AUTO) 1 % (0-10); EOSINOPHILS # (AUTO) 0.1 10^3/uL (0.0-0.3); EOSINOPHILS % (AUTO) 1 % (0-10); HEMATOCRIT 38 % (35-52); HEMOGLOBIN 13.4 g/dL (11.5-16.0); LYMPHOCYTES % (AUTO) 13 % (12-44); MEAN CORPUSCULAR HEMOGLOBIN 30 pg (25-34); MEAN CORPUSCULAR HGB CONC 35 g/dL (32-36); MEAN CORPUSCULAR VOLUME 84 fL (80-99); MEAN PLATELET VOLUME 8.8 fL (9.0-12.2); MONOCYTES % (AUTO) 6 % (0-12); NEUTROPHILS # (AUTO) 12.3 10^3/uL (1.8-7.8); NEUTROPHILS % (AUTO) 79 % (42-75); PLATELET COUNT 458 10^3/uL (130-400); WHITE BLOOD COUNT 15.5 10^3/uL (4.3-11.0)
[2022-04-01 09:11] LABS: ALBUMIN 4.4 GM/DL (3.2-4.5)
[2022-04-01 09:12] LABS: POTASSIUM 3.4 MMOL/L (3.6-5.0)
[2022-04-01 09:13] LABS: CALCIUM 9.7 MG/DL (8.5-10.1)
[2022-04-01 09:16] LABS: BILIRUBIN,TOTAL 0.9 MG/DL (0.1-1.0)
[2022-04-01 09:27] LABS: LYMPHOCYTES % (MANUAL) 9 %; MONOCYTES % (MANUAL) 7 %; NEUTROPHILS % (MANUAL) 84 %; RBC MORPH NORMAL
[2022-04-01] MEDS ORDERED: LACTATED RINGERS 1,000 ML IV STA (10:22)
[2022-04-01 11:07] LABS: CLARITY,URINE CLEAR; COLOR,URINE YELLOW; GLUCOSE, URINE (UA) NEGATIVE (NEGATIVE); KETONES,URINE 2+ (NEGATIVE); LEUKOCYTE ESTERASE ,URINE NEGATIVE (NEGATIVE); NITRITE,URINE NEGATIVE (NEGATIVE); PH,URINE 6.5 (5-9); PROTEIN,URINE 2+ (NEGATIVE)
[2022-04-01] MEDS ORDERED: LACTATED RINGERS 1,000 ML IV ONE (11:42)
[2022-04-01] MEDS ORDERED: LACTATED RINGERS 1,000 ML IV SCH (12:00)
[2022-04-01 12:01] LABS: BACTERIA,URINE NEGATIVE /HPF; BILIRUBIN,URINE 1+ (NEGATIVE)
[2022-04-01] MEDS ORDERED: NS 100 ML (IVPB) BAG IV ONE (12:30)
[2022-04-01] MEDS ORDERED: IOHEXOL 350 MG/ML 100 ML (OMNIPAQUE 350) VIAL IV ONE (12:30)
--- NOTE | 2022-04-01 12:46 | Diagnostic Imaging Report ---
PROCEDURE: CT abdomen and pelvis with contrast. TECHNIQUE: Multiple contiguous axial images were obtained through the abdomen and pelvis after administration of intravenous contrast. Auto Exposure Controls were utilized during the CT exam to meet ALARA standards for radiation dose reduction. All CT scans use one or more of the following dose optimizing techniques: automated exposure control, MA and/or KvP adjustment based on patient size and exam type or iterative reconstruction. INDICATION: Right lower quadrant pain Lung bases are clear. Liver appears normal. The gallbladder surgically absent. The portal vein is patent. There is reservoir effect of the common duct. Pancreas is unremarkable. Spleen is not enlarged. There is ascites present which is predominantly in the perisplenic area and left paracolic gutter. Small bowel is not dilated. Colon appears normal. There appears to be probable large hematoma in the cul-de-sac. There is a complex right adnexal mass with solid and cystic components. The uterus appears grossly normal. IMPRESSION: Hemoperitoneum. Complex right adnexal mass could be from ovarian torsion with hemorrhage or neoplasm. Dictated by: Dictated on workstation # [id number]
[2022-04-01] MEDS ORDERED: ONDANSETRON 4 MG/2 ML (SDV) Z0FRAN ONE ×2 (12:58→13:24)
[2022-04-01] MEDS ORDERED: HYDROmorphone 2 MG/ML VIAL (DILAUDID) IV ONE ×2 (13:00→16:15)
[2022-04-01] MEDS ORDERED: LIDOCAINE PF 2% 5 ML (XYLOCAINE) VIAL ONE (13:24)
[2022-04-01] MEDS ORDERED: MIDAZOLAM 2 MG/2 ML (VERSED) VIAL ONE (13:24)
[2022-04-01] MEDS ORDERED: SEVOFLURANE (ULTANE) 15 ML INHAL SOLN ONE ×2 (13:24→15:44)
[2022-04-01] MEDS ORDERED: ROCURONIUM 50 MG/5 ML (ZEMURON) VIAL IV ONE (13:24)
[2022-04-01] MEDS ORDERED: fentaNYL INJ 100 MCG/2 ML AMP ONE (13:24)
[2022-04-01] MEDS ORDERED: proPOfol 200 MG/20 ML (DIPRIVAN) VIAL IV ONE (13:24)
--- NOTE | 2022-04-01 13:24 | History & Physical-Surgical ---
HPO-Surgical History of Present Illness Chief Complaint: PT STATES LOWER ABD PAIN THAT STARTED LAST NIGHT ABOUT 1800, NORMAL BM NO PAIN ON URINATION Diagnosis/Surgical Indication: Hemoperitoneum Procedure: Diagnostic laparoscopy Date of Surgery: Apr 01, 2022 Weight (Pounds): 200 Weight (Ounces): 0.0 Height (Feet): 5 Height (Inches): 4.00 Allergies and Home Medications Allergies Coded Allergies: clindamycin (Verified Allergy, Intermediate, 08/27/18) Patient Home Medication List Home Medication List Reviewed: Yes Citalopram Hydrobromide (Citalopram HBr) 20 Mg Tablet, 20 MG PO DAILY, (Reported) Entered as Reported by: ELSY CARRILLO on 08/28/18 1003 Hydrocodone Bit/Acetaminophen (Lortab 5 Mg Tablet) 1 Tab Tab, 1-2 TAB PO Q6H PRN for PAIN-MODERATE Prescribed by: HEIKE NATION on 08/30/18 1524 Lisinopril/Hydrochlorothiazide (Lisinopril-Hctz 20-12.5 mg Tab) 1 Each Tablet, 1 TAB PO DAILY, (Reported) Entered as Reported by: DENNIS SCHWARZ on 03/15/18 1442 Meloxicam (Meloxicam) 7.5 Mg Tablet, 7.5 MG PO DAILY PRN for BACK PAIN, (Reported) Entered as Reported by: ELSY CARRILLO on 08/28/18 1003 Multivitamin/Iron/Folic Acid (Centrum Complete Multivit Tab) 1 Each Tablet, 1 TAB PO DAILY, (Reported) Entered as Reported by: ELSY CARRILLO on 08/28/18 1003 Ondansetron HCl (Zofran) 4 Mg Tab, 4 MG PO Q6H Prescribed by: INGRIS GAMEZ on 08/30/18 1842 Past Kmtfdiv-Npzhhv-Siiuiw Hx Patient Social History Alcohol Beverage of Choice: Rum, Wine 2nd Hand Smoke Exposure: No Recent Hopitalizations: No Have you traveled recently?: No Alcohol Use?: Yes Immunizations Up To Date Pediatric: Yes Date of Influenza Vaccine: May 08, 2018 Seasonal Allergies Seasonal Allergies: Yes Surgeries Yes Tubal Ligation Respiratory Yes Currently Using CPAP: No Currently Using BIPAP: No Cardiovascular Yes Hypertension Neurological Yes Headaches /Migraines Reproductive System Last Menstrual Period: Mar 03, 2022 Sexually Transmitted Disease: No HIV/AIDS: No Female 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 Genitourinary No Gastrointestinal Yes Gastroesophageal Reflux Musculoskeletal No Endocrine History of Endocrine Disorders: No HEENT History of HEENT Disorders: No Loss of Vision: Denies Hearing Impairment: Denies Cancer No Psychosocial History of Psychiatric Problem: Yes Behavioral Health Disorders: Anxiety Integumentary History of Skin or Integumenta: Yes Skin/Integumentary Disorders: Eczema Blood Transfusions History of Blood Disorders: No Adverse Reaction to a Blood Tr: No Family Medical History Significant Family History: Heart Disease, Hypertension, Other Conditions/Hx Family Hx: FH: factor V Leiden mutation G8 SISTER Hypertension 19 FATHER 19 MOTHER Exam Vital Signs Vital Signs 04/01/22 04/01/22 08:35 13:00 Temp 36.5 Pulse 122 Resp 22 B/P (MAP) 151/104 (120) Pulse Ox 100 O2 Delivery Room Air Capillary Refill : Less Than 3 Seconds Labs Laboratory Tests Test 04/01/22 08:55 04/01/22 10:50 Range/Units White Blood Count 15.5 H 4.3-11.0 10^3/uL Red Blood Count 4.50 3.80-5.11 10^6/uL Hemoglobin 13.4 11.5-16.0 g/dL Hematocrit 38 35-52 % Mean Corpuscular Volume 84 80-99 fL Mean Corpuscular Hemoglobin 30 25-34 pg Mean Corpuscular Hemoglobin Concent 35 32-36 g/dL Red Cell Distribution Width 12.6 10.0-14.5 % Platelet Count 458 H 130-400 10^3/uL Mean Platelet Volume 8.8 L 9.0-12.2 fL Immature Granulocyte % (Auto) 1 % Neutrophils (%) (Auto) 79 H 42-75 % Lymphocytes (%) (Auto) 13 12-44 % Monocytes (%) (Auto) 6 0-12 % Eosinophils (%) (Auto) 1 0-10 % Basophils (%) (Auto) 1 0-10 % Neutrophils # (Auto) 12.3 H 1.8-7.8 10^3/uL Lymphocytes # (Auto) 2.0 1.0-4.0 10^3/uL Monocytes # (Auto) 1.0 0.0-1.0 10^3/uL Eosinophils # (Auto) 0.1 0.0-0.3 10^3/uL Basophils # (Auto) 0.1 0.0-0.1 10^3/uL Immature Granulocyte # (Auto) 0.1 0.0-0.1 10^3/uL Neutrophils % (Manual) 84 % Lymphocytes % (Manual) 9 % Monocytes % (Manual) 7 % Blood Morphology Comment NORMAL Sodium Level 138 135-145 MMOL/L Potassium Level 3.4 L 3.6-5.0 MMOL/L Chloride Level 100 98-107 MMOL/L Carbon Dioxide Level 24 21-32 MMOL/L Anion Gap 14 5-14 MMOL/L Blood Urea Nitrogen 14 7-18 MG/DL Creatinine 1.00 0.60-1.30 MG/DL Estimat Glomerular Filtration Rate 74 BUN/Creatinine Ratio 14 Glucose Level 151 H 70-105 MG/DL Calcium Level 9.7 8.5-10.1 MG/DL Corrected Calcium 9.4 8.5-10.1 MG/DL Total Bilirubin 0.9 0.1-1.0 MG/DL Aspartate Amino Transf (AST/SGOT) 18 5-34 U/L Alanine Aminotransferase (ALT/SGPT) 19 0-55 U/L Alkaline Phosphatase 44 40-136 U/L C-Reactive Protein High Sensitivity 1.19 H 0.00-0.50 MG/DL Total Protein 8.0 6.4-8.2 GM/DL Albumin 4.4 3.2-4.5 GM/DL Serum Test, Qualitative NEGATIVE NEGATIVE Urine Color YELLOW Urine Clarity CLEAR Urine pH 6.5 5-9 Urine Specific [place] 1.025 H 1.016-1.022 Urine Protein 2+ H NEGATIVE Urine Glucose (UA) NEGATIVE NEGATIVE Urine Ketones 2+ H NEGATIVE Urine Nitrite NEGATIVE NEGATIVE Urine Bilirubin 1+ H NEGATIVE Urine Urobilinogen 0.2 < = 1.0 MG/DL Urine Leukocyte Esterase NEGATIVE NEGATIVE Urine RBC (Auto) NEGATIVE NEGATIVE Urine RBC NONE /HPF Urine WBC NONE /HPF Urine Crystals NONE /LPF Urine Bacteria NEGATIVE /HPF Urine Casts NONE /LPF Urine Mucus NEGATIVE /LPF Urine Culture Indicated NO General Appearance: Alert, Oriented X3, Moderate Distress HEENT: Atraumatic Respiratory: Clear to Auscultation Cardiovascular: Regular Rate Abdominal: Other (rebound, guarding, distention diffusely) Extremities: Normal Pulses Neuro: Normal Speech Psych/Mental Status: Mental Status NL Assessment/Plan Assessment and Plan Plan: Diagnostic laparoscopy Admission Diagnosis Diagnosis: 37 yo w/ pelvic mass of unknown origin Hemoperitoneum Severe Abdominal pain Admission Status: Observation MUKESH FLORES DO Apr 01, 2022 13:23
[2022-04-01] MEDS ORDERED: LIDOCAINE/EPI 2% 1:200,00 (XYLOCAINE) 20 ML VIAL ONE (13:33)
[2022-04-01] MEDS ORDERED: BUPIVACAINE 0.25% 30 ML (SENSORCAINE) VIAL INJ ONE (13:39)
[2022-04-01] MEDS ORDERED: LACTATED RINGERS 1,000 ML IV PRN (13:45)
[2022-04-01] MEDS ORDERED: BUPIVACAINE 0.25% 30 ML (SENSORCAINE) VIAL ONE (13:48)
[2022-04-01] MEDS ORDERED: SUGAMMADEX 500 MG/5 ML VIAL (BRIDION) IV ONE (16:04)
[2022-04-01] MEDS ORDERED: KETOROLAC 30 MG/ML VIAL ONE (16:04)
--- NOTE | 2022-04-01 16:10 | Anesthesia-General Post-Op ---
General Patient Condition Mental Status/LOC: Same as Preop Cardiovascular: Satisfactory Nausea/Vomiting: Absent Respiratory: Satisfactory Pain: Controlled Complications: Absent Post Op Complications Complications None Follow Up Care/Instructions Patient Instructions None needed. Anesthesia/Patient Condition Patient Condition Patient is doing well, no complaints, stable vital signs, no apparent adverse anesthesia problems. No complications reported per nursing. RIMMA FLYNN CRNA Apr 01, 2022 16:10
[2022-04-01] MEDS ORDERED: morphine INJ 10 MG/ML 1ML (SYR OR VIAL) IVP ONE (16:15)
[2022-04-01] MEDS ORDERED: ONDANSETRON 4 MG/2 ML (SDV) Z0FRAN IVP PRN ×2 (16:15→16:45)
--- NOTE | 2022-04-01 16:42 | Discharge Inst-Women's Service ---
Discharge Inst-Women's Serv Depart Medication/Instructions New, Converted or Re-Newed RX: Transmitted to Pharmacy Final Diagnosis Hemorrhagic ovarian cyst, PO laparoscopy Problems Reviewed?: Yes Consults/Follow Up Additional Follow Up: Yes Orders/Referrals Dr. Hagen in 7-10 days Activity Activity: Activity as Tolerated Driving Instructions: No Driving for 1 Week (do no t drive while taking narcotic pain meds) NO SMOKING: NO SMOKING Nothing Inside Vagina: No Douching, No [place], No Tampons Diet Discharge Diet: No Restrictions Symptoms to Report to : Bleeding Excessive, Pain Increased, Fever Over 101 Degrees F, Vaginal Bleeding Increase, Questions/Concerns For Any Problems or Questions: Contact Your Physician Skin/Wound Care Infection Signs and Symptoms: Increased Redness, Foul Odor of Wound, Increased Drainage, Skin Itchy or Has a Rash, Increased Swelling, Temperature Above 101 F Operative Area Clean and Dry: Keep Incision Clean/Dry Stitches/Dagoberto/Dermabond: Dermabond, Care of Stitches Bathing Instructions: MUKESH Hayes DO Apr 01, 2022 16:42
[2022-04-01] MEDS ORDERED: KETOROLAC 30 MG/ML VIAL IVP ONE (16:45)
[2022-04-01] MEDS ORDERED: DOCU-143 PO (16:46)
[2022-04-01] MEDS ORDERED: ACHD5005 PO (16:46)
[2022-04-01] MEDS ORDERED: IBUP-844 PO (16:46)
--- NOTE | 2022-04-01 17:34 | OPERATIVE REPORT ---
DATE OF SERVICE: 04/01/2022 ATTENDING PRIMARY CARE PHYSICIAN: Madhu Hagen DO PREOPERATIVE DIAGNOSIS: Hemorrhage, status post diagnostic laparoscopy and right salpingo-oophorectomy. POSTOPERATIVE DIAGNOSES: Hemorrhage, status post diagnostic laparoscopy and right salpingo-oophorectomy. PROCEDURE: Diagnostic laparoscopy at intraoperative consultation at the request of the attending surgeon. SURGEON: Cristian Jones MD. ANESTHESIA: General endotracheal. ESTIMATED BLOOD LOSS: Minimal. FINDINGS: Good hemostasis along the area of the previous salpingo-oophorectomy. No bleeding within the right subphrenic space or the subhepatic space. There was serosanguineous fluid in Morison pouch; however, no active bleeding. DISPOSITION: The patient tolerated the procedure well. INDICATIONS: The patient is a 37-year-old female who has had issues with left lower quadrant abdominal pain. She has had recurrent ovarian cyst along the right ovary. The patient did opt for diagnostic laparoscopy as well as a salpingo-oophorectomy if indicated. This diagnostic laparoscopy was performed along with salpingo-oophorectomy. Upon completion of the surgery and after approximately 2.5 liters of irrigation, there did appear to be a significant amount of fluid accumulation within the pelvis as well as the right subphrenic and right subhepatic space. We were called for intraoperative consultation and a diagnostic laparoscopy. A 5 mm port was placed in the left upper abdominal quadrant. We then proceeded to examine the right subphrenic space where there was some serosanguineous fluid, which was suctioned out. We then put pressure in the subhepatic space to express Morison pouch where there was a significant amount of serosanguineous fluid with no bright red blood to indicate any active bleeding. This appeared to be old blood mixed with irrigation. This was suctioned out. This was done with the patient in reverse Trendelenburg position. We then proceeded with placing the patient in Trendelenburg position and identified the pelvis where again serosanguineous fluid was identified and suctioned out. The recently operated region that encompassed the salpingo-oophorectomy was completely dry with no active bleeding identified. The fluid within the pelvic cul-de-sac was then suctioned out as well as within the pericolic gutters as well as we could between the recesses of the small bowel mesentery. This all appeared to be old blood mixed with saline with no fresh active bleeding identified. Another 10 minutes had elapsed and we continue to monitor and there was no recurrent fluid accumulation or bleeding identified. The patient was again turned over to the primary surgeon where desufflation and removal of the ports and closure was performed. Job ID: [id number] DocumentID: [id number] Dictated Date: 04/01/2022 16:58:37 Milk Treater Date: 04/01/2022 17:33:30 Dictated By: CRISTIAN JONES MD MTDD
[2022-04-01] MEDS: HYDROcodone/APAP 5 MG/325 MG (LORTAB) TAB PO PRN ×2 (17:46→23:28)
[2022-04-01] MEDS: D5 LR IV SOLUTION 1,000 ML IV SCH (19:57)
[2022-04-01] MEDS: IBUPROFEN 600 MG (MOTRIN) TAB PO SCH (23:29)
--- NOTE | 2022-04-02 00:25 | OPERATIVE REPORT ---
DATE OF SERVICE: 04/01/2022 PREOPERATIVE DIAGNOSES: 1. A 37-year-old female with hemoperitoneum on CT scan. 2. Right adnexal mass. POSTOPERATIVE DIAGNOSES: 1. A 37-year-old female with hemoperitoneum on CT scan. 2. Right adnexal mass. 3. Right hemorrhagic ovarian cyst. PROCEDURE: Laparoscopic evacuation of hemoperitoneum and right salpingo-oophorectomy. SURGEON: Madhu Flores DO. CONSULTATIONS MADE: Intraoperatively to Dr. Yanet Mccarthy MD ANESTHESIA: General endotracheal. ESTIMATED BLOOD LOSS: 1500 mL cleared out of the abdomen. FLUIDS: 1200 mL lactated Ringer's solution. URINE OUTPUT: 100 mL clear at the end of the procedure. FINDINGS: Grossly normal appearing uterus, bilateral fallopian tubes and left ovary. Right ovary is enlarged with area that was actively bleeding noted on the cystic structure grossly normal appearing upper abdominal anatomy. SPECIMEN SENT: Right tube and ovary. INDICATIONS FOR PROCEDURE: This 37-year-old female is a patient who came to the Emergency Department with acute onset lower abdominal pain started yesterday at 6:00 p.m. Upon arrival to the Emergency Department, she was ruled out for nephrolithiasis. A CT scan was performed, which revealed a hemoperitoneum necessitating consultation as well as a surgical abdomen on evaluation. I discussed with the patient diagnostic laparoscopy addressing further bleeding that is apparent on CT scan. Risks of the procedure were discussed with the patient in detail including risk of bleeding, infection, damaging surrounding structures including, but not limited to bowel, bladder, ureter, kidneys, possible need for reoperation, possibility of laparotomy, risk from anesthesia and even . After everything was discussed with the patient in detail, consent was obtained, the patient was taken to the operating room. OPERATIVE REPORT IN DETAIL: Once in the operating room, anesthesia was found to be adequate, placed in dorsal lithotomy position, prepped and draped in normal sterile fashion. Gilbert catheter was placed using sterile technique. A timeout was performed. A weighted speculum inserted to the patient's vagina. Right angle retractor was used to visualize the cervix, which was grasped at 12 o'clock position using a long Allis clamp. I then gently sound the uterine cavity, depth was found to be 8 cm. I then placed a Skyonicer uterine manipulator to a depth of 8 cm deploying the balloon, I removed all the instruments from the patient's vagina, performed change of gloves obtained my attention to the abdomen, where subcostally midclavicular line, I introduced a Veress needle until intraperitoneal placement was confirmed using saline drop test. Opening pressure of 7 mmHg was noted, proceeded to maximum pressure using CO2 gas of 15 mmHg, at which point I infiltrated the infraumbilical area using 0.25% Marcaine and make a 5 mm incision with a knife and directed a 5 mm trocar through the incision until intraperitoneal placement confirmed using the laparoscope. There was no evidence of damage from entry site. There is of note hemoperitoneum throughout the upper abdomen and lower abdomen. I began by clearing out of the upper abdomen. There was no active bleeding noted at that point. After patient placed in steep Trendelenburg, I continued with removing hematoperitoneum from the lower abdomen, at which point I am able to finally identify the right ovary, which is enlarged and somewhat bleeding. This was all done by placing a suprapubic trocar, which was a 5 mm trocar, which was extended to 12 mm trocar. Once this trocar was then placed suction irrigation was performed through this trocar site. I then proceeded with removing that right ovary and bleeding, adnexal mass. I started at the IP ligament, which I sealed and transected using the LigaSure device and took this around to the mesovarium around to the uteroovarian ligament, at which point the tube and ovary were completely amputated from the surrounding structures. I then removed the ovary and tube through an Endopouch bag on the 12 mm trocar site. There is a significant amount of recollection of blood after copiously irrigating the pelvis using normal saline. Therefore, I consulted Dr. Mccarthy to come take a look at the upper abdomen to ensure there is no evidence of other active bleeding. He assures me that there is not based upon his evaluation. Therefore, I then flattened the patient out and closed the larger trocar site using a Richard-Terrance device. There is a right upper quadrant trocar that was placed by Dr. Mccarthy as a 5 mm trocar as well and that was used to evaluate the upper abdomen. All of the smaller trocars after the insufflation was released and all instruments were removed from the patient's vagina are closed using Dermabond. The larger trocar site is closed using a Richard-Terrance and 0 Vicryl suture through the fascia as well as 4-0 Monocryl interrupted subcuticular stitches. Dermabond was applied to the incision as well. Band-Aids were placed over all the incision. Kronner uterine manipulator is removed at the end of procedure so as the Gilbert catheter. The patient tolerated the procedure well and sent to recovery area in stable condition. Lap and sponge counts were correct at the end of procedure. Instrument counts correct as well. Job ID: [id number] DocumentID: [id number] Dictated Date: 04/01/2022 16:52:03 Health Record Technician Date: 04/02/2022 00:25:06 Dictated By: MADHU FLORES DO
[2022-04-02] MEDS: D5 LR IV SOLUTION 1,000 ML IV SCH (03:03)
[2022-04-02 06:00] VITALS: BP 123/60
[2022-04-02] MEDS: IBUPROFEN 600 MG (MOTRIN) TAB PO SCH (06:00)
[2022-04-02 07:50] VITALS: BP 133/80
[2022-04-02] MEDS: HYDROcodone/APAP 5 MG/325 MG (LORTAB) TAB PO PRN (08:23)
--- NOTE | 2022-04-02 08:31 | Progress Note ---
Standard Progress Note Progress Notes/Assess & Plan Date Seen by a Provider: Apr 02, 2022 Time Seen by a Provider: 08:20 Progress/Assessment & Plan DC home today, follow-up for PO in 7-10 days Focused Exam Respiratory: No Chest Non Tender, No Lungs Clear, No Normal Breath Sounds, No No Accessory Muscle Use, No No Respiratory Distress, No Accessory Muscle Use, No Crackles, No Decreased Breath Sounds, No Expiration, No Inspiration, No Pleural Rub, No Rales, No Respiratory Distress, No Rhonci, No Stridor, No Wheezing, No Other Cardiovascular: No Regular Rate, Rhythm, No No Edema, No No Gallop, No No JVD, No No Murmur, No Normal Peripheral Pulses, No Bradycardia, No Diastolic Murmur, No Systolic Murmur, No Extra Beats, No Friction Rub, No Gallop/S3, No Gallop/S4, No Irregularly Irregular, No JVD, No Tachycardia, No Other Skin: No normal color, No warm/dry, No cyanosis, No cool, No diaphoresis, No damp, No ecchymosis, No jaundice, No mottled, No pallor, No rash, No tattoos/pi ercings, No ulcerations, No rash on exposed areas, No ulcerations on exposed areas, No other Diagnosis/Problems Diagnosis/Problems (1) Post-operative state Status: Acute (2) Ovarian cyst Status: Acute Qualifiers: Qualified Codes: N83.201 - Unspecified ovarian cyst, right side FAB DALEY APRN Apr 02, 2022 08:31
[2022-04-02 09:50] VITALS: BP 133/80
== END 2022-04-02 09:50 | disposition home or self-care (01) ==
LOC: EDUNIT# 08:29 → ER 08:31 → SDC 13:26 → WS 16:45 → SDC 04-02 09:50
PROVIDERS: ATTEND Obstetrics & Gynecology
DX: N83.11 Corpus luteum cyst of right ovary (principal); N83.201 Unspecified ovarian cyst, right side; K66.1 Hemoperitoneum
CPT/HCPCS: 36415; 74177; 80053; 81000; 84703; 85007; 85027; 86141; 86850; 86900; 86901; 86920